=== PATIENT | male | born 1950 | race Caucasian/White ===

== ENCOUNTER → 2018-07-21 15:56 | Outpatient (CLI) | payer OTHER, SELFPAY ==
--- NOTE | 2018-07-21 | DI.RAD.S_ITS ---
PROCEDURE: XR CHEST 2V INDICATIONS: Chronic obstructive pulmonary disease, unspecified TECHNIQUE: 2 views of the chest were acquired. COMPARISON: [facility], , CHEST 2 VIEW, 01/25/2009, 17:00. FINDINGS: Surgical changes and devices: None. Lungs and pleura: Lungs are clear. No pleural effusions or pneumothorax. Mediastinum: Mediastinal contours are normal. Heart size is normal. Bones and chest wall: No suspicious bony abnormalities. Soft tissues appear unremarkable. IMPRESSION: Stable chest. No acute cardiopulmonary process is evident. Dictated by: Tobi Byrd M.D. on 07/21/2018 at 16:00 Approved by: Tobi Byrd M.D. on 07/21/2018 at 16:00
== END ==
PROVIDERS: PCP Internal Medicine; Visit Provider Internal Medicine
DX: J44.9 Chronic obstructive pulmonary disease, unspecified (principal)
CPT/HCPCS: 71046

== ENCOUNTER 2018-09-20 13:24 | Day surgery (SDC) | payer OTHER, SELFPAY ==
[2018-09-06 11:52] VITALS: BMI 40.1
--- NOTE | 2018-09-20 | PATH_ITS ---
[facility] Accession Number: [id number] . 01 Material submitted: . PART A: back - UPPER BACK CYST PART B: back - LOWER BACK CYST . 02 Diagnosis: A. Skin, Upper Back Cyst, Biopsy: Epidermoid inclusion cyst. . B. Skin, Lower Back Cyst, Biopsy: Epidermoid inclusion cyst. [facility]2018 . 02 Electronically signed: . Ivana Rayo MD, Pathologist NPI- [id number] . 01 Gross description: . A. Received in formalin, labeled with the patient's name and upper back cyst, is a 5.5 x 3.3 cm unoriented tim-white skin ellipse with underlying tim-brown subcutaneous tissue measuring 5.7 x 4.4 x 3.5 cm. Sectioning reveals an encapsulated 3.6 cm in diameter cystic cavity containing brown friable material. Voltage Tester sections are submitted in two cassettes. B. Received in formalin, labeled with the patient's name and lower back cyst, is a 3.4 x 1.9 cm unoriented tim-white skin ellipse excised to a depth of 1.8 cm. No abnormalities are identified on the skin surface. Sectioning reveals a 1.1 cm in diameter cystic cavity containing tim-white, friable material. Voltage Tester sections are submitted in two cassettes. (MARQUTIA:[id number]) /MRV . 02 Pathologist provided ICD-10: L72.3 . 02 CPT . 107308, 395180 Performed at: 01 [facility] [address] [place] [address] [id number] MD Damon Christensen MD Phone: [phone] Performed at: 02 [facility] [place] [address] [place] [address] [id number] MD Ivana Rayo MD Phone: [phone]
[2018-09-20] MEDS: LACTATED RINGERS 1,000 ML 100 ML IV (14:04)
[2018-09-20 14:05] VITALS: BP 151/91; PULSE 88; RESP 17; TEMP 37.2; O2SAT 94; BMI 40.0
--- NOTE | 2018-09-20 15:13 | PM.PREOP ---
Pre-operative Note Interval Note History & Physical reviewed/Exam performed by Physician: Yes Changes to H&P: No H&P completed within 30 days and has changed as indicated here:: See note from 09/01
[2018-09-20] MEDS: CEFAZOLIN 2 GM/100 ML FROZ.PIGGY IV (15:30)
--- NOTE | 2018-09-20 15:53 | SUR.OPER ---
Prone on padded OR bed, head in foam head support, gel chest rolls, gel pad under knees, pillow under lower legs, toes free of pressure, arms secured on padded arm boards at <90 degrees abduction. Safety belt at thigh.
[2018-09-20] MEDS: BUPIVACAINE 0.5% (PF) VIAL 30 ML INJ (16:01)
--- NOTE | 2018-09-20 16:38 | PM.OP.1 ---
Operative Date/Time/Diagnoses Date of procedure: 09/20/18 Time of procedure: 16:39 Pre-op diagnosis: To inflamed/infected sebaceous cyst of the back. One cyst measured 5 x 5 cm the other 4 by 3 cm Post-op diagnosis: same Procedure & Clinicians Procedure: Excision of the 2 inflamed cysts. One required a 9 cm long incision in the other a 7 cm incision. Both were closed by mobilizing deep fascia to bring the subcu together without tension. They were closed in 3 layers. See note below Same procedure as scheduled: Yes Indications: Symptomatic sebaceous cysts of the back. One had undergone an I and D already. Surgeon: Tushar Osborne Click Yes if Unassisted: Yes Anesthesia Type: General Operative Notes Findings: Large cyst excised intact Closure Type: primary Specimen(s): other (Cysts) Prosthetic devices, grafts, tissues, transplants, or devices: None Estimated Blood Loss (mL): 30 Blood products transfused: none Procedure in detail: The patient was placed prone on the operating room table after undergoing general endotracheal anesthesia. He was prepped and draped in the usual fashion. Local anesthetic was infiltrated around the upper back mass and an ellipse was made transversely to encompass the entire cyst. Was carried into the subcu which and deep underneath it. It was excised. I incised just below the visible fascia to bring the fat together without tension. Meticulous hemostasis was achieved. The fascial layer was reapproximated with 2 0 Vicryl interrupted sutures. The subcu and dermis were brought together with 3 0 Vicryl sutures. The skin was closed with interrupted 3 0 nylon sutures. Total length of the incision 1 closed was 9 cm. Attention was turned to the lesion on the lower back. This was excised and closed in the exact same manner. It was a smaller incision at sudden 7 m long. Dressings were applied. Patient was placed back on his bed supine and extubated and taken the recovery area in good condition. Complications: none Condition: stable Disposition: PACU
[2018-09-20 16:45] VITALS: BP 184/89; PULSE 84; RESP 20; TEMP 36.6; O2SAT 94
[2018-09-20 16:50] VITALS: BP 176/93; PULSE 82; RESP 12; TEMP 36.3; O2SAT 92
[2018-09-20 16:55] VITALS: BP 192/93; PULSE 80; RESP 12; TEMP 36.5; O2SAT 98
[2018-09-20 17:00] VITALS: BP 180/90; PULSE 80; RESP 16; TEMP 36.3; O2SAT 94
[2018-09-20 17:15] VITALS: BP 162/86; PULSE 74; RESP 16; TEMP 36.4; O2SAT 94
== END 2018-09-20 17:25 | disposition home or self-care (01) ==
PROVIDERS: PCP Internal Medicine; Visit Provider Specialist
PROC: (CPT 11406; principal; 2018-09-20 15:30)
DX: L72.3 Sebaceous cyst (principal); J44.9 Chronic obstructive pulmonary disease, unspecified
CPT/HCPCS: 11406 ×2; J0330; J0690; J1100; J2405; J2704; J3010

== ENCOUNTER → 2019-03-15 14:59 | Outpatient (ROUT) | payer MEDICARE, SELFPAY ==
[2019-03-15 15:15] LABS: Add Manual Diff / Slide Review NO; Basophils Absolute Auto 0 /uL (0-100); Basophils Percent Auto 0.3 % (0-2); Eosinophils Absolute Auto 100 /uL (0-450); Eosinophils Percent Auto 1.6 % (2-4); Hematocrit 41.9 % (41-53); Hemoglobin 14.1 g/dL (13.5-17.5); Lymphocytes Absolute Auto 800 /uL (1100-4500); Lymphocytes Percent Auto 9.8 % (25-40); Mean Corpuscular HGB Conc 33.5 % (30-36); Mean Corpuscular Hemoglobin 31.4 PG (26-34); Mean Corpuscular Volume 93.7 fL (80-100); Monocytes Absolute Auto 600 /uL (0-900); Monocytes Percent Auto 7.6 % (3-14); Neutrophils Absolute Auto 6200 /uL (1500-7000); Neutrophils Percent Auto 80.7 % (50-75); Platelet Count 187 X10^3/uL (150-400); Red Blood Cell Count 4.47 X10^6/uL (4.5-5.9); Red Cell Distribution Width 13.5 % (11.6-14.8); White Blood Cell Count 7.7 X10^3/uL (4.5-11.0)
[2019-03-15 15:24] LABS: Alanine Aminotransferase 70 IU/L (<50); Albumin 4.1 g/dL (3.5-5.0); Albumin Globulin Ratio 1.4 (1.0-2.8); Alkaline Phosphatase 74 U/L (38-126); Aspartate Aminotransferase 50 IU/L (17-59); BUN Creatinine Ratio 11.3 (6-22); Bilirubin Total 0.5 mg/dL (0.2-1.3); Blood Urea Nitrogen 9 mg/dL (9-20); Calcium 9.2 mg/dL (8.4-10.2); Carbon Dioxide 31 mmol/L (22-32); Chloride 98 mmol/L (98-107); Cholesterol 209 mg/dL (140-199); Estimated Glomerular Filt Rate > 60.0 mL/min (>60); Globulin 2.9 g/dL (1.7-4.1); Glucose 106 mg/dL (80-110); HDL Cholesterol 51 mg/dL (40-60); HEMOLYSIS < 15 (0-50); LDL Cholesterol Calculated 116 mg/dL (<100); Potassium 4.3 mmol/L (3.4-5.1); Sodium 137 mmol/L (137-145); Triglycerides 212 mg/dL (35-150)
== END ==
PROVIDERS: PCP Internal Medicine; Visit Provider Physician Assistant
DX: I10 Essential (primary) hypertension (principal); E78.5 Hyperlipidemia, unspecified
CPT/HCPCS: 80053; 80061; 85025

== ENCOUNTER → 2019-04-13 12:56 | Outpatient (CLI) | payer MEDICARE, SELFPAY ==
[2019-04-13 13:32] LABS: Hematocrit 44.4 % (41-53); Mean Corpuscular HGB Conc 33.9 % (30-36); Mean Corpuscular Hemoglobin 30.9 PG (26-34); Mean Corpuscular Volume 91.4 fL (80-100); Platelet Count 219 X10^3/uL (150-400); Red Blood Cell Count 4.86 X10^6/uL (4.5-5.9); Red Cell Distribution Width 13.2 % (11.6-14.8); White Blood Cell Count 7.7 X10^3/uL (4.5-11.0)
[2019-04-13 14:48] LABS: Neutrophils Absolute Manual 6545 /uL (3000-5900); RBC Morphology Normal Morphology; Total Cells Counted 100
[2019-04-13 15:26] LABS: Alanine Aminotransferase 90 IU/L (<50); Albumin 4.5 g/dL (3.5-5.0); Albumin Globulin Ratio 1.5 (1.0-2.8); Alkaline Phosphatase 79 U/L (38-126); Aspartate Aminotransferase 47 IU/L (17-59); BUN Creatinine Ratio 15.6 (6-22); Bilirubin Total 0.5 mg/dL (0.2-1.3); Blood Urea Nitrogen 14 mg/dL (9-20); Calcium 9.5 mg/dL (8.4-10.2); Carbon Dioxide 32 mmol/L (22-32); Chloride 99 mmol/L (98-107); Estimated Glomerular Filt Rate > 60.0 mL/min (>60); Glucose 87 mg/dL (80-110); HEMOLYSIS < 15 (0-50); Potassium 4.7 mmol/L (3.4-5.1); Sodium 141 mmol/L (137-145); Total Protein 7.5 g/dL (6.3-8.2)
== END ==
PROVIDERS: PCP Physician Assistant; Referring Provider Physician Assistant; Visit Provider Physician Assistant
DX: I10 Essential (primary) hypertension (principal); E78.2 Mixed hyperlipidemia
CPT/HCPCS: 36415; 80053; 85025

== ENCOUNTER → 2019-04-22 14:26 | Outpatient (CLI) | payer MEDICARE, SELFPAY ==
--- NOTE | 2019-04-25 09:37 | ONC.MSW ---
Description: Initial Referral Navigation Reason for Referral: Lymphocytopenia Activity: Reviewed referral for acuity, medical status and immediate needs. Forwarded to scheduling for next available initial consult time.
--- NOTE | 2019-04-29 15:49 | PM.PFT.1 ---
Pulmonary Function Test Referral & Results Date Patient Seen: 04/22/19 Requesting provider: Kerline Davies Results: The spirometry demonstrates an FVC of 2.37 L which is 53% of predicted. The FEV1 was measured at 0.95 L which is 29% of predicted. The FEV1/FVC ratio was 40 which is 54% of predicted. Following the administration of bronchodilator there was a 23% improvement in FEV1 and a 79% improvement in FEF 25-75%. Lung volumes show an SVC of 2.41 L which is 52% of predicted. The diffusing capacity was measured at 20.98 which is 64% of predicted. No hemoglobin value was provided, so no correction for potential anemia could be made, if appropriate. The maximum voluntary ventilation was reduced Interpretation: This study demonstrates severe obstructive lung disease with an FEV1 of less than 1 L. There is evidence of significant benefit following bronchodilator based on improvement in FEV1 and FEF 25-75% There is moderate restrictive lung disease present as well based on reduction SVC There is also moderate reduction in diffusing capacity suggesting significant disease at the capillary alveolar level This is altogether consistent with a diagnosis of COPD. Clinical correlation suggested
== END ==
PROVIDERS: PCP Physician Assistant; Referring Provider Physician Assistant; Visit Provider Physician Assistant
DX: J44.9 Chronic obstructive pulmonary disease, unspecified (principal); Z87.891 Personal history of nicotine dependence
CPT/HCPCS: 94060; 94726; 94729

== ENCOUNTER → 2019-08-12 14:56 | Outpatient (CLI) | payer MEDICARE, SELFPAY ==
--- NOTE | 2019-08-12 14:59 | DI.RAD.S_ITS ---
PROCEDURE: XR KNEE LT 1TO2V INDICATIONS: Left ankle pain, pain in both knees TECHNIQUE: 2 views of the knee were acquired. COMPARISON: None. FINDINGS: Bones: No fractures or dislocations. No suspicious bony lesions. Soft tissues: Small suprapatellar joint effusion. No suspicious soft tissue calcifications. IMPRESSION: Left knee without acute fracture or dislocation. Small suprapatellar joint effusion. If there are persistent symptoms or clinical suspicion for pathology, then repeat radiographs or advanced imaging (CT, MRI or bone scan) should be considered for further evaluation. Dictated by: Raphael Solares M.D. on 08/12/2019 at 15:52 Approved by: Raphael Solares M.D. on 08/12/2019 at 15:53
--- NOTE | 2019-08-12 14:59 | DI.RAD.S_ITS ---
PROCEDURE: XR ANKLE LT MIN 3V INDICATIONS: Left ankle pain, pain in both knees TECHNIQUE: 3-views of the ankle were acquired. COMPARISON: None. FINDINGS: Bones: No acute fractures or dislocations. Ankle mortise is normally aligned. No suspicious bony lesions. Soft tissues: There is soft tissue swelling of the left lower leg and ankle. No tibiotalar joint effusion. Achilles tendon appears normal. IMPRESSION: Soft tissue swelling of the left lower leg and ankle without underlying fracture or dislocation. If there are persistent symptoms or clinical suspicion for pathology, then repeat radiographs or advanced imaging (CT, MRI or bone scan) should be considered for further evaluation. Dictated by: Raphael Solares M.D. on 08/12/2019 at 15:50 Approved by: Raphael Solares M.D. on 08/12/2019 at 15:52
--- NOTE | 2019-08-12 14:59 | DI.RAD.S_ITS ---
PROCEDURE: XR KNEE RT 1TO2V INDICATIONS: Left ankle pain, pain in both knees TECHNIQUE: 2 views of the knee were acquired. COMPARISON: [facility], CR, XR KNEE LT 1TO2V, 08/12/2019, 14:11. FINDINGS: Bones: No fractures or dislocations. Tricompartmental degenerative changes. No suspicious bony lesions. Soft tissues: Small suprapatellar joint effusion. Chronic appearing soft tissue calcifications projecting adjacent to the medial tibial plateau. No suspicious soft tissue calcifications. IMPRESSION: Right knee without acute fracture or dislocation. Small suprapatellar joint effusion. If there are persistent symptoms or clinical suspicion for pathology, then repeat radiographs or advanced imaging (CT, MRI or bone scan) should be considered for further evaluation. Dictated by: Raphael Solares M.D. on 08/12/2019 at 16:00 Approved by: Raphael Solares M.D. on 08/12/2019 at 16:02
== END ==
PROVIDERS: PCP Physician Assistant; Referring Provider Physician Assistant; Visit Provider Physician Assistant
DX: M25.572 Pain in left ankle and joints of left foot (principal); M25.562 Pain in left knee; M25.561 Pain in right knee; M79.89 Other specified soft tissue disorders; M25.462 Effusion, left knee; M25.461 Effusion, right knee
CPT/HCPCS: 73560; 73610

== ENCOUNTER → 2019-08-24 06:59 | Outpatient (CLI) | payer MEDICARE, SELFPAY ==
--- NOTE | 2019-08-24 | DI.MRI.S_ITS ---
PROCEDURE: MR KNEE LT WO CON INDICATIONS: Pain in left knee TECHNIQUE: Noncontrast sagittal PD fast spin echo and T2 fast spin echo with fat saturation, sagittal 3-D FLASH with fat saturation; coronal T1 spin echo and PD fast spin echo with fat saturation, and axial PD fast spin echo with fat saturation through the knee. COMPARISON: [facility], CR, XR KNEE LT 1TO2V, 08/12/2019, 14:11. FINDINGS: Image quality: Diagnostic. Bones and joint: There is no acute fracture or dislocation. However, there is moderate bone marrow edema evident along the medial tibial plateau without an associated fracture line appreciated. No suspicious osseous lesions are evident. There is a moderate-sized knee joint effusion with a probable associated Krishnan's cyst. Heterogeneity and mild irregularity of the hyaline articular cartilage within the medial tibiofemoral compartment is present. There may be areas of cartilaginous fissuring. The hyaline articular cartilage within the lateral and patellofemoral compartments appears to be within normal limits. Mild degenerative changes of the proximal tibiofibular joint are noted with associated degenerative cystic change within it the lateral tibial plateau. Cruciate ligaments: The anterior and posterior cruciate ligaments are intact. Mild thickening of the anterior cruciate ligament probably is related to scarring from previous partial thickness injury. Menisci: Posterior root avulsion of the medial meniscus is present with mild extrusion of the body of the meniscus. Degenerative signal throughout the body and posterior horn is present. An additional horizontal tear is seen along the periphery of the medial meniscus at the junction of the body and posterior horn without definite articular surface involvement. Amorphous globular signal is also evident within it the lateral meniscus without a discrete lateral meniscal tear appreciated. Medial structures: The medial collateral ligament is intact. Edema about the medial collateral ligament is present. The semimembranosus tendon insertion is thickened and demonstrates mild increased signal without definitive tearing. There is an amorphous area of increased signal evident on the fluid sensitive sequences just medial to the distal semimembranosus tendon (image 23, series 6), which measures up to at least 1.6 cm and the largest dimension on the axial images. This may represent heterogeneous fluid within a semimembranosus bursa or heterogeneous fluid from the Krishnan's cyst. Medial patellar plica is noted. The imaged portions of the pes anserinus tendons are unremarkable. A moderate amount of fluid is contained within the pes anserinus bursa. Lateral structures: The popliteal tendon is intact. The lateral collateral ligament proper (fibular collateral ligament) and the proximal tibiofibular ligaments are intact. The distal aspect of the biceps femoris tendon and the iliotibial band are intact. Anterior structures: The quadriceps and patellar tendons are intact. There is mild edema in the infrapatellar fat pad. Fluid is seen within the prepatellar bursa. Other: Extensive subcutaneous edema about the knee is identified that is more pronounced anteriorly. IMPRESSION: 1. Complex medial meniscal tear with posterior root avulsion. 2. Medial tibial plateau bone contusion without a definitive fracture evident. 3. Possible medial collateral ligament sprain. 4. Moderate distal semimembranosus tendinopathy. Heterogeneous fluid adjacent to this tendon may represent heterogeneous fluid within the bursa or a Krishnan's cyst. Other etiologies cannot be completely excluded. Three-month followup MRI of the knee with intravenous contrast is recommended to exclude an underlying lesion. 5. Medial patellar plica. 6. Edema within the prepatellar soft tissues may be related to recent trauma. Please correlate clinically to exclude bursitis. 7. Moderate-sized knee joint effusion. 8. Mild degenerative changes of the knee are most pronounced within the medial tibiofemoral compartment. 9. Mucoid degeneration of the lateral meniscus without a discrete lateral meniscal tear evident. Dictated by: Tobi Byrd M.D. on 08/24/2019 at 10:13 Approved by: Tobi Byrd M.D. on 08/24/2019 at 10:20
== END ==
PROVIDERS: PCP Physician Assistant; Referring Provider Physician Assistant; Visit Provider Physician Assistant
DX: M25.562 Pain in left knee (principal); S83.232A Complex tear of medial meniscus, current injury, left knee, initial encounter; S80.02XA Contusion of left knee, initial encounter; M25.462 Effusion, left knee; M79.89 Other specified soft tissue disorders; M67.52 Plica syndrome, left knee; R60.0 Localized edema
CPT/HCPCS: 73721

== ENCOUNTER → 2020-01-25 13:36 | Outpatient (CLI) | payer MEDICARE, SELFPAY ==
--- NOTE | 2020-01-25 | DI.RAD.S_ITS ---
PROCEDURE: XR CHEST 2V INDICATIONS: COPD TECHNIQUE: 2 views of the chest were acquired. COMPARISON: [facility], CR, XR CHEST 2V, 07/21/2018, 16:03. FINDINGS: Surgical changes and devices: None. Lungs and pleura: Lungs are clear. No pleural effusions or pneumothorax. Mediastinum: Mediastinal contours are normal. Heart size is normal. Bones and chest wall: No suspicious bony abnormalities. Soft tissues appear unremarkable. IMPRESSION: No acute cardiopulmonary findings. Dictated by: Teagan Padilla M.D. on 01/25/2020 at 15:56 Approved by: Teagan Padilla M.D. on 01/25/2020 at 15:56
== END ==
PROVIDERS: PCP Physician Assistant; Referring Provider Physician Assistant; Visit Provider Physician Assistant
DX: J44.9 Chronic obstructive pulmonary disease, unspecified (principal)
CPT/HCPCS: 71046

== ENCOUNTER → 2020-01-31 13:40 | Oncology outpatient (ONC) | payer MEDICARE, SELFPAY ==
--- NOTE | 2019-05-10 10:33 | P.CONONC_ITS ---
History of Present Illness - Data of Consult Patient: new to practice Consult date: 05/10/19 Requesting Physician: Kerline Davies PA-C Primary Care Provider: Kerline Davies PA-C - Consult Narrative Reason for consult: Lymphocytopenia Narrative: Hamlet Krishna is a 69 year old male with medical comorbidities most notable severe COPD as well as hypertension. Patient was referred by Kerline Davies for evaluation of incidental finding of lymphopenia. On 03/15/2019, patient was evaluated for annual wellness visit. The lab on the day showed WBC 7.7 hemoglobin 14.1, hematocrit 41.9 platelets 187 with absolute lymphocyte count 800. And about a month later on March the 08/06/2019, patient underwent a repeat lab tests which showed WBC 7.7, hemoglobin 15.0, hematocrit 44.4, platelets 219, atypical lymphocytes 1%. Clinically patient reports symptoms of COPD and obesity and sleep apnea. He denies any frequent infection. Denies any fever or chills. He denies abdominal pain. No bleeding. CC: Savanna Hernandez MD Home Medications and Allergies Home Medications Medication Instructions Recorded Confirmed Type beclomethasone dipropionate 40 2 puff INHALATION BID 09/01/18 10/05/18 History mcg/actuation HFA breath activated aerosol carlos a 63 mg-alpha tab PO tab 09/01/18 10/05/18 History wwuzmanzv-plqktyic-njwxt acid-dha 17 mg chew tablet cholecalciferol (vitamin D3) 25 1,000 unit PO DAILY 09/01/18 10/05/18 History mcg (1,000 unit) capsule focus factor PO 09/01/18 10/05/18 History glucosam 750 mg-chondroi 100 tab PO tab 09/01/18 10/05/18 History mg-hyalur 1.65 mg-CF borate 108 mg tablet ipratropium 20 mcg-albuterol 100 1 puff INHALATION Q6H 09/01/18 10/05/18 History mcg/actuation mist for inhalation multivitamin 1 cap PO DAILY 09/01/18 10/05/18 History Blood Boost 05/10/19 History Md Liver Repair 05/10/19 History felodipine 5 mg PO DAILY 05/10/19 05/10/19 History Allergies Allergy/AdvReac Type Severity Reaction Status Date / Time No Known Drug Allergies Allergy Unverified 10/05/18 13:45 Medical History - Medical, Surgical, Family History Medical History: Medical History (Last Updated 05/10/19 @ 10:52 by Savanna Hernandez MD) COPD (chronic obstructive pulmonary disease) Hypertension STEFFEN (obstructive sleep apnea) Onset Date: ~2013 Surgical History: Surgical History (Last Reviewed 04/13/19 @ 16:31 by Willy Maciel MD) Hx of hemorrhoidectomy Hx of hernia repair Family History: Family History (Last Updated 05/10/19 @ 10:54 by Savanna Hernandez MD) Unknown Diabetes mellitus Hypertension Sister No problems noted. 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 He stopped drinking 03/03/2019.) Review of Systems All systems PM: reviewed and no additional remarkable complaints except as stated Exam Vital signs: 05/10/19 10:58 Last Vital Signs Temp 98.3 F 05/10/19 10:45 Pulse 72 05/10/19 10:45 Resp 16 05/10/19 10:45 BP 158/102 H 05/10/19 10:45 Pulse Ox 93 05/10/19 10:45 Narrative: ECOG 1 Gen: WDWN, NAD, morbid obese, pleasant and cooperative. Here by himself HEENT: NCAT, EOMI, PERRLA, anicteric sclera. Neck: Supple, No palpable thyromegaly or lymphadenopathy. Respiratory: Decreased breathing sound both side heard. With scattered wheezes especially on the left side. No crackles. Cardiovascular: RRR, S1 and S2 normal, no M/G/R. Abdomen: Soft, protuberant, difficult to evaluate organomegaly. Extremities: 1+ pitting edema bilaterally. Lymphatic: no palpable lymph nodes in the neck, axillae, or groins. Neurological: AOx3, CN II-XII grossly intact. No focal motor or sensory deficit. Psychiatric: Normal affect, appropriate mood, no depression, no anxiety. Results - Labs Laboratory Last Values WBC 7.9 X10^3/uL (4.5-11.0) 05/10/19 11:31 RBC 4.85 X10^6/uL (4.5-5.9) 05/10/19 11:31 Hgb 15.0 g/dL (13.5-17.5) 05/10/19 11:31 Hct 44.4 % (41-53) 05/10/19 11:31 MCV 91.6 fL (80-100) 05/10/19 11:31 MCH 30.8 PG (26-34) 05/10/19 11:31 MCHC 33.7 % (30-36) 05/10/19 11:31 RDW 13.3 % (11.6-14.8) 05/10/19 11:31 Plt Count 185 X10^3/uL (150-400) 05/10/19 11:31 Neut % (Auto) 80.5 % (50-75) H 05/10/19 11:31 Lymph % (Auto) 11.2 % (25-40) L 05/10/19 11:31 [place] % (Auto) 6.4 % (3-14) 05/10/19 11:31 Eos % (Auto) 1.6 % (2-4) L 05/10/19 11:31 Baso % (Auto) 0.3 % (0-2) 05/10/19 11:31 Neut # (Auto) 6300 /uL (4973-7760) 05/10/19 11:31 Lymph # (Auto) 900 /uL (9327-1230) L 05/10/19 11:31 [place] # (Auto) 500 /uL (0-900) 05/10/19 11:31 Eos # (Auto) 100 /uL (0-450) 05/10/19 11:31 Baso # (Auto) 0 /uL (0-100) 05/10/19 11:31 Sodium 140 mmol/L (137-145) 05/10/19 11:31 Potassium 4.6 mmol/L (3.4-5.1) 05/10/19 11:31 Chloride 103 mmol/L (98-107) 05/10/19 11:31 Carbon Dioxide 29 mmol/L (22-32) 05/10/19 11:31 BUN 15 mg/dL (9-20) 05/10/19 11:31 Creatinine 0.76 mg/dL (0.66-1.25) 05/10/19 11:31 Estimated GFR > 60.0 mL/min (>60) 05/10/19 11:31 BUN/Creatinine Ratio 19.7 (6-22) 05/10/19 11:31 Glucose 105 mg/dL (80-110) 05/10/19 11:31 Calcium 9.5 mg/dL (8.4-10.2) 05/10/19 11:31 Total Bilirubin 0.4 mg/dL (0.2-1.3) 05/10/19 11:31 AST 37 IU/L (17-59) 05/10/19 11:31 ALT 87 IU/L (<50) H 05/10/19 11:31 Alkaline Phosphatase 77 U/L (38-126) 05/10/19 11:31 Lactate Dehydrogenase 452 U/L (313-618) 05/10/19 11:31 Total Protein 7.6 g/dL (6.3-8.2) 05/10/19 11:31 Albumin 4.5 g/dL (3.5-5.0) 05/10/19 11:31 Globulin 3.1 g/dL (1.7-4.1) 05/10/19 11:31 Albumin/Globulin Ratio 1.5 (1.0-2.8) 05/10/19 11:31 - Imaging Additional studies: Procedures CLOSED ENDOSCOPIC BIOPSY OF LARGE INTESTINE (08/28/09) Colonoscopy (10/24/14) ENDOSCOPIC BIOPSY OF RECTUM (08/28/09) Assessment and Plan (1) Lymphopenia Overview: 69-year-old gentleman, morbid obese, with history of COPD, hypertension and obstructive sleep apnea. He was referred for evaluation of isolated lymphopenia first noted on 03/15/2019 during annual wellness visit. Repeat labs confirmed the lymphopenia and in addition atypical lymphocyte was noted. Assessment: I explained to the patient that the lymphopenia is a common finding. As long as patient does not have any associated infectious disease, usually we tend to observe closely. However there are atypical cells reported. I would recommend that we repeat the labs first and then will decide about the next step. Patient voiced understanding. Plan: CBC, CMP, LDH, SPEP RTC in one week
[2019-05-10 10:45] VITALS: BP 158/102; PULSE 72; RESP 16; TEMP 36.8; O2SAT 93
[2019-05-10 11:43] LABS: Add Manual Diff / Slide Review NO; Basophils Absolute Auto 0 /uL (0-100); Basophils Percent Auto 0.3 % (0-2); Eosinophils Absolute Auto 100 /uL (0-450); Eosinophils Percent Auto 1.6 % (2-4); Hematocrit 44.4 % (41-53); Lymphocytes Absolute Auto 900 /uL (1100-4500); Lymphocytes Percent Auto 11.2 % (25-40); Mean Corpuscular HGB Conc 33.7 % (30-36); Mean Corpuscular Hemoglobin 30.8 PG (26-34); Mean Corpuscular Volume 91.6 fL (80-100); Monocytes Absolute Auto 500 /uL (0-900); Monocytes Percent Auto 6.4 % (3-14); Neutrophils Absolute Auto 6300 /uL (1500-7000); Neutrophils Percent Auto 80.5 % (50-75); Platelet Count 185 X10^3/uL (150-400); Red Blood Cell Count 4.85 X10^6/uL (4.5-5.9); Red Cell Distribution Width 13.3 % (11.6-14.8); White Blood Cell Count 7.9 X10^3/uL (4.5-11.0)
[2019-05-10 11:56] LABS: Alanine Aminotransferase 87 IU/L (<50); Albumin 4.5 g/dL (3.5-5.0); Albumin Globulin Ratio 1.5 (1.0-2.8); Alkaline Phosphatase 77 U/L (38-126); Aspartate Aminotransferase 37 IU/L (17-59); BUN Creatinine Ratio 19.7 (6-22); Bilirubin Total 0.4 mg/dL (0.2-1.3); Blood Urea Nitrogen 15 mg/dL (9-20); Calcium 9.5 mg/dL (8.4-10.2); Carbon Dioxide 29 mmol/L (22-32); Chloride 103 mmol/L (98-107); Estimated Glomerular Filt Rate > 60.0 mL/min (>60); Globulin 3.1 g/dL (1.7-4.1); Glucose 105 mg/dL (80-110); HEMOLYSIS < 15 (0-50); Lactate Dehydrogenase 452 U/L (313-618); Potassium 4.6 mmol/L (3.4-5.1); Sodium 140 mmol/L (137-145); Total Protein 7.6 g/dL (6.3-8.2)
[2019-05-12 14:36] LABS: Albumin 3.8 g/dL (2.9-4.4); Alpha-1-Globulin 0.3 g/dL (0.0-0.4); Alpha-2-Globulin 0.8 g/dL (0.4-1.0); Globulin Total 3.2 g/dL (2.2-3.9)
--- NOTE | 2019-05-17 14:21 | PC.NURSE ---
PATIENT CANCELLED APPT TODAY DUE TO HIS MOTHER'S ILLNESS HE CARES FOR HER. HE WOULD LIKE TO KNOW IF ALL WAS OK WITH THE LAB RESULTS.
--- NOTE | 2019-05-18 12:15 | PC.NURSE ---
Addendum entered by Ashley Whittaker R.N. 05/18/19 12:38: Per Dr. Hernandez labs are stable. Okay to see in 3 months. CBC, CMP, LDH. Pt aware, labs and f/u ordered, schedulers aware. Original Note: Pt called informing this web content writer that his mother suffered a stroke a couple days ago. PT is currently the only caregiver for his 95 year old mother and he is unable to follow up with Dr. Hernandez at this time. Pt voiced concern r/t COVID 19 and having a earth science technical officer come in and sit with his mother so her could come to an appointment. Pt requesting Dr. Hernandez review his recent labs and then notify pt of next steps and recommendation. Will place note with pt's lab results in Dr. Hernandez's box. Pt aware and agreeable to plan.
--- NOTE | 2019-05-19 09:01 | ONC.SCHED ---
Left msg. for patient to schedule labs and 3 month f/u
[2019-08-05 15:50] LABS: Add Manual Diff / Slide Review NO; Basophils Absolute Auto 0 /uL (0-100); Basophils Percent Auto 0.2 % (0-2); Eosinophils Absolute Auto 100 /uL (0-450); Eosinophils Percent Auto 1.8 % (2-4); Hematocrit 41.4 % (41-53); Hemoglobin 14.4 g/dL (13.5-17.5); Lymphocytes Absolute Auto 1100 /uL (1100-4500); Mean Corpuscular HGB Conc 34.8 % (30-36); Mean Corpuscular Hemoglobin 31.3 PG (26-34); Monocytes Absolute Auto 600 /uL (0-900); Monocytes Percent Auto 7.3 % (3-14); Neutrophils Absolute Auto 6400 /uL (1500-7000); Neutrophils Percent Auto 77.7 % (50-75); Platelet Count 180 X10^3/uL (150-400); Red Cell Distribution Width 13.7 % (11.6-14.8); White Blood Cell Count 8.3 X10^3/uL (4.5-11.0)
[2019-08-05 16:02] LABS: Alanine Aminotransferase 67 IU/L (<50); Albumin 4.5 g/dL (3.5-5.0); Albumin Globulin Ratio 1.6 (1.0-2.8); Alkaline Phosphatase 68 U/L (38-126); Aspartate Aminotransferase 42 IU/L (17-59); BUN Creatinine Ratio 13.5 (6-22); Bilirubin Total 0.8 mg/dL (0.2-1.3); Blood Urea Nitrogen 12 mg/dL (9-20); Calcium 9.5 mg/dL (8.4-10.2); Carbon Dioxide 30 mmol/L (22-32); Chloride 101 mmol/L (98-107); Estimated Glomerular Filt Rate > 60.0 mL/min (>60); Globulin 2.8 g/dL (1.7-4.1); Glucose 92 mg/dL (80-110); HEMOLYSIS < 15 (0-50); Lactate Dehydrogenase 550 U/L (313-618); Potassium 4.2 mmol/L (3.4-5.1); Sodium 138 mmol/L (137-145); Total Protein 7.3 g/dL (6.3-8.2)
[2019-08-09 15:50] VITALS: BP 156/100; PULSE 93; RESP 18; TEMP 37.3; O2SAT 94
--- NOTE | 2019-08-09 17:40 | ONC.PN ---
PN -Subjective Interval history: Mr. Krishna presents today for follow-up of lymphopenia. Review of his old records shows an absolute lymphocyte count of 1100 in September of 2016. In February of 2019 his absolute lymphocyte count was 800. Repeat absolute lymphocyte count in April of 2019 was 900. He was seen in consultation by Dr. Hernandez. He was noted to have an absolute neutrophil count of 6300 with normal hemoglobin, hematocrit, red cell indices. Metabolic panel showing SGPT 87 otherwise normal. Serum protein electrophoresis and LDH were normal. He comes today for a follow-up visit. He denies problems with any lumps or bumps, bleeding from anywhere, malaise, fever, chills, night sweats, change in his breathing, anorexia, unintended weight loss, trouble swallowing or mouth sores. All other systems are negative. Past medical history 1. High blood pressure 2. History of chronic bronchitis and COPD 3. He denies diabetes, rheumatic fever, tuberculosis, heart attacks, strokes, stomach ulcers, or any kind of cancer 4. Previous surgeries include a removal of a sebaceous cyst on his back, and hemorrhoidectomy 5. He is unaware of any family history of blood disorders 6. He is single. He was recently caring for his mother who about a year ago. He does contract work and runs an excavator. He is not a current smoker and has an occasional drinker. - Patient Self-Reported Symptoms SR respiratory issues: Shortness of breath SR Cardiovascular issues: Extreme swelling SR Skin issues: Nail changes SR Musculoskeletal issues: Difficulty walking Home Medications and Allergies Home Medications Medication Instructions Recorded Confirmed Type beclomethasone dipropionate 40 2 puff INHALATION BID 09/01/18 10/05/18 History mcg/actuation HFA breath activated aerosol carlos a 63 mg-alpha tab PO tab 09/01/18 10/05/18 History uphhwpqls-rraeeoax-pznos acid-dha 17 mg chew tablet cholecalciferol (vitamin D3) 25 1,000 unit PO DAILY 09/01/18 10/05/18 History mcg (1,000 unit) capsule focus factor PO 09/01/18 10/05/18 History glucosam 750 mg-chondroi 100 tab PO tab 09/01/18 10/05/18 History mg-hyalur 1.65 mg-CF borate 108 mg tablet ipratropium 20 mcg-albuterol 100 1 puff INHALATION Q6H 09/01/18 10/05/18 History mcg/actuation mist for inhalation multivitamin 1 cap PO DAILY 09/01/18 10/05/18 History Blood Boost 05/10/19 History Md Liver Repair 05/10/19 History felodipine 5 mg PO DAILY 05/10/19 05/10/19 History Gsh Cell Defense 08/09/19 History Wbwd-C-Pfmkj 08/09/19 History Physio Primo 08/09/19 History Release 08/09/19 History Uricel 08/09/19 History fluticasone furoate [Arnuity 1 inh INHALATION DAILY 08/09/19 08/09/19 History Ellipta] reema extract cap PO 08/09/19 History vit C-s.tbhykd-tzraru-hqgsr sd cap PO 08/09/19 History [Tart Stout] Allergies Allergy/AdvReac Type Severity Reaction Status Date / Time No Known Drug Allergies Allergy Unverified 10/05/18 13:45 Exam Vital signs: Vital Signs Temp Pulse Resp BP Pulse Ox 08/09/19 15:50 99.1 F 93 H 18 156/100 H 94 Intake and Output 08/09/19 08/09/19 08/09/19 07:59 15:59 23:59 Other: Weight 133.4 kg Patient Weight 08/09/19 23:59 Weight 133.4 kg Narrative: He was in no acute distress. There was no lymphadenopathy in the cervical, supraclavicular, axillary, inguinal or femoral regions. The lungs were clear with distant breath sounds with slightly prolonged expiratory phase with no rales, wheezes or findings to suggest a pleural effusion on exam. Heart showed a regular rate and rhythm without murmur, gallop or rub. Abdomen was soft and nontender without organomegaly or masses. Neither the spleen or the liver were enlarged by percussion. Results - Labs Laboratory Last Values WBC 8.3 X10^3/uL (4.5-11.0) 08/05/19 15:41 RBC 4.60 X10^6/uL (4.5-5.9) 08/05/19 15:41 Hgb 14.4 g/dL (13.5-17.5) 08/05/19 15:41 Hct 41.4 % (41-53) 08/05/19 15:41 MCV 90.0 fL (80-100) 08/05/19 15:41 MCH 31.3 PG (26-34) 08/05/19 15:41 MCHC 34.8 % (30-36) 08/05/19 15:41 RDW 13.7 % (11.6-14.8) 08/05/19 15:41 Plt Count 180 X10^3/uL (150-400) 08/05/19 15:41 Neut % (Auto) 77.7 % (50-75) H 08/05/19 15:41 Lymph % (Auto) 13.0 % (25-40) L 08/05/19 15:41 [place] % (Auto) 7.3 % (3-14) 08/05/19 15:41 Eos % (Auto) 1.8 % (2-4) L 08/05/19 15:41 Baso % (Auto) 0.2 % (0-2) 08/05/19 15:41 Neut # (Auto) 6400 /uL (3293-4190) 08/05/19 15:41 Lymph # (Auto) 1100 /uL (6715-0011) 08/05/19 15:41 [place] # (Auto) 600 /uL (0-900) 08/05/19 15:41 Eos # (Auto) 100 /uL (0-450) 08/05/19 15:41 Baso # (Auto) 0 /uL (0-100) 08/05/19 15:41 Sodium 138 mmol/L (137-145) 08/05/19 15:41 Potassium 4.2 mmol/L (3.4-5.1) 08/05/19 15:41 Chloride 101 mmol/L (98-107) 08/05/19 15:41 Carbon Dioxide 30 mmol/L (22-32) 08/05/19 15:41 BUN 12 mg/dL (9-20) 08/05/19 15:41 Creatinine 0.89 mg/dL (0.66-1.25) 08/05/19 15:41 Estimated GFR > 60.0 mL/min (>60) 08/05/19 15:41 BUN/Creatinine Ratio 13.5 (6-22) 08/05/19 15:41 Glucose 92 mg/dL (80-110) 08/05/19 15:41 Calcium 9.5 mg/dL (8.4-10.2) 08/05/19 15:41 Total Bilirubin 0.8 mg/dL (0.2-1.3) 08/05/19 15:41 AST 42 IU/L (17-59) 08/05/19 15:41 ALT 67 IU/L (<50) H 08/05/19 15:41 Alkaline Phosphatase 68 U/L (38-126) 08/05/19 15:41 Lactate Dehydrogenase 550 U/L (313-618) 08/05/19 15:41 Total Protein 7.3 g/dL (6.3-8.2) 08/05/19 15:41 Albumin 4.5 g/dL (3.5-5.0) 08/05/19 15:41 Globulin 2.8 g/dL (1.7-4.1) 08/05/19 15:41 Albumin/Globulin Ratio 1.6 (1.0-2.8) 08/05/19 15:41 [place]ws[place]-4-Eaaekiuek 0.3 g/dL (0.0-0.4) 05/10/19 11:31 Froyr-5-Bquapgkpt 0.8 g/dL (0.4-1.0) 05/10/19 11:31 Beta Globulins 1.1 g/dL (0.7-1.3) 05/10/19 11:31 Gamma Globulins 1.0 g/dL (0.4-1.8) 05/10/19 11:31 Gamma Glob/Tot Protein 3.2 g/dL (2.2-3.9) 05/10/19 11:31 M-Jay Not observed g/dL (Not Observed) 05/10/19 11:31 Ref Lab Notation Comment (.) 05/10/19 11:31 - Imaging Additional studies: Procedures ANAL FISTULOTOMY (09/12/09) CLOSED ENDOSCOPIC BIOPSY OF LARGE INTESTINE (08/28/09) Colonoscopy (10/24/14) ENDOSCOPIC BIOPSY OF RECTUM (08/28/09) HEMORRHOIDECTOMY (09/12/09) Assessment and Plan (1) Lymphopenia Overview: The patient is clinically stable. His repeat labs from today show a normal lymphocyte number of 1100. His lymphocyte percentage is slightly low at 13% but he does not have an absolute lymphopenia. And elevation of his ALT remains the sole abnormality on his chemistry panel but is slightly improved from before. He does not have a clinical history to suggest recurrent infections, an underlying lymphoproliferative disorder or other malignancy, a collagen vascular disease and is not on any medications that would be potential culprits. He takes a topical steroid but I doubt that that would cause a lymphopenia. For now, given the fact that he is asymptomatic, I would suggest we continue to monitor him. His most recent absolute lymphocyte count was normal. Accordingly, we will have him back in about 6 months with repeat labs. Would be happy to see him back at any time if we could be of assistance in his care. He had multiple questions that were answered in detail. I personally spent 18 minutes in today's sjrw-uc-cyfp visit with greater than 50% of the time spent in counseling regarding the issues outlined above.
[2020-01-25 14:08] LABS: Hematocrit 44.1 % (41-53); Hemoglobin 14.6 g/dL (13.5-17.5); Mean Corpuscular HGB Conc 33.2 % (30-36); Mean Corpuscular Hemoglobin 30.5 PG (26-34); Mean Corpuscular Volume 92.1 fL (80-100); Platelet Count 190 X10^3/uL (150-400); Red Blood Cell Count 4.78 X10^6/uL (4.5-5.9); Red Cell Distribution Width 13.8 % (11.6-14.8); White Blood Cell Count 9.2 X10^3/uL (4.5-11.0)
[2020-01-25 14:30] LABS: Alanine Aminotransferase 72 IU/L (<50); Albumin 4.3 g/dL (3.5-5.0); Albumin Globulin Ratio 1.4 (1.0-2.8); Alkaline Phosphatase 81 U/L (38-126); Aspartate Aminotransferase 42 IU/L (17-59); BUN Creatinine Ratio 21.1 (6-22); Bilirubin Total 0.4 mg/dL (0.2-1.3); Blood Urea Nitrogen 15 mg/dL (9-20); Carbon Dioxide 31 mmol/L (22-32); Chloride 103 mmol/L (98-107); Estimated Glomerular Filt Rate > 60.0 mL/min (>60); Globulin 3.1 g/dL (1.7-4.1); Glucose 105 mg/dL (80-110); HEMOLYSIS < 15 (0-50); Potassium 4.5 mmol/L (3.4-5.1); Sodium 138 mmol/L (137-145); Total Protein 7.4 g/dL (6.3-8.2)
[2020-01-25 16:32] LABS: Neutrophils Absolute Manual 7544 /uL (3000-5900); RBC Morphology Normal Morphology; Total Cells Counted 100
[2020-01-27 13:36] LABS: Albumin 3.6 g/dL (2.9-4.4); Alpha-1-Globulin 0.2 g/dL (0.0-0.4); Alpha-2-Globulin 0.8 g/dL (0.4-1.0); Gamma Globulin 1.1 g/dL (0.4-1.8); Globulin Total 3.3 g/dL (2.2-3.9); Protein, Total 6.9 g/dL (6.0-8.5)
[2020-01-31 14:49] VITALS: BP 167/89; PULSE 87; RESP 16; TEMP 36.5; O2SAT 90
--- NOTE | 2020-01-31 15:00 | ONC.PN ---
PN -Subjective Interval history: Mr. Krishna presents today for follow-up of lymphopenia. Review of his old records shows an absolute lymphocyte count of 1100 in September of 2016. In February of 2019 his absolute lymphocyte count was 800. Repeat absolute lymphocyte count in April of 2019 was 900. He was seen in consultation by Dr. Hernandez. He was noted to have an absolute neutrophil count of 6300 with normal hemoglobin, hematocrit, red cell indices. Metabolic panel showing SGPT 87 otherwise normal. Serum protein electrophoresis and LDH were normal. He comes today for a follow-up visit. Since he was last in he has been feeling good. He has not had recurrent infections, night sweats, anorexia, unintended weight loss or any enlarged lymph nodes. He does not have infections of superficial cuts. He does note that he hit his right breast just above and lateral to the nipple and it has been sore in that area. He also notes a fullness in that area. This was all about a week ago. He does not think things have changed over the past week. He denies problems with any lumps or bumps, bleeding from anywhere, malaise, fever, chills, night sweats, change in his breathing, anorexia, unintended weight loss, trouble swallowing or mouth sores. All other systems are negative. Past medical history 1. High blood pressure 2. History of chronic bronchitis and COPD 3. He denies diabetes, rheumatic fever, tuberculosis, heart attacks, strokes, stomach ulcers, or any kind of cancer 4. Previous surgeries include a removal of a sebaceous cyst on his back, and hemorrhoidectomy 5. He is unaware of any family history of blood disorders 6. He is single. He was recently caring for his mother who about a year ago. He does contract work and runs an excavator. He is not a current smoker and has an occasional drinker. - Patient Self-Reported Symptoms SR respiratory issues: Shortness of breath SR Cardiovascular issues: Extreme swelling SR Skin issues: Skin color changes SR Musculoskeletal issues: Joint pain or swelling Home Medications and Allergies Home Medications Medication Instructions Recorded Confirmed Type beclomethasone dipropionate 40 2 puff INHALATION BID 09/01/18 10/05/18 History mcg/actuation HFA breath activated aerosol carlos a 63 mg-alpha tab PO tab 09/01/18 10/05/18 History dmwnmcsln-jbuwlkxb-jekzh acid-dha 17 mg chew tablet cholecalciferol (vitamin D3) 25 1,000 unit PO DAILY 09/01/18 10/05/18 History mcg (1,000 unit) capsule focus factor PO 09/01/18 10/05/18 History glucosam 750 mg-chondroi 100 tab PO tab 09/01/18 10/05/18 History mg-hyalur 1.65 mg-CF borate 108 mg tablet ipratropium 20 mcg-albuterol 100 1 puff INHALATION Q6H 09/01/18 10/05/18 History mcg/actuation mist for inhalation multivitamin 1 cap PO DAILY 09/01/18 10/05/18 History Blood Boost 05/10/19 History Md Liver Repair 05/10/19 History felodipine 5 mg PO DAILY 05/10/19 05/10/19 History Gsh Cell Defense 08/09/19 History Gdvl-N-Wjwsq 08/09/19 History Physio Primo 08/09/19 History Release 08/09/19 History Uricel 08/09/19 History fluticasone furoate [Arnuity 1 inh INHALATION DAILY 08/09/19 08/09/19 History Ellipta] reema extract cap PO 08/09/19 History vit C-s.bkwmjx-xfoklp-kfzeb sd cap PO 08/09/19 History [Tart Stout] Allergies Allergy/AdvReac Type Severity Reaction Status Date / Time No Known Drug Allergies Allergy Unverified 10/05/18 13:45 Exam Vital signs: Vital Signs Temp Pulse Resp BP Pulse Ox 01/31/20 14:49 97.7 F 87 16 167/89 H 90 L Intake and Output 01/30/20 01/31/20 01/31/20 23:59 07:59 15:59 Other: Weight 137.5 kg Patient Weight 01/31/20 23:59 Weight 137.5 kg Narrative: He was in no acute distress. There was no lymphadenopathy in the cervical, supraclavicular, axillary, inguinal or femoral regions. The lungs were clear with distant breath sounds with slightly prolonged expiratory phase with no rales, wheezes or findings to suggest a pleural effusion on exam. Heart showed a regular rate and rhythm without murmur, gallop or rub. Abdomen was soft and nontender without organomegaly or masses. Neither the spleen or the liver were enlarged by percussion. The left breast was normal. The right breast showed a subtle fullness at about 10:00 a.m. approximately 2 cm from the nipple. It did not feel like a firm discrete mass. Results - Labs Laboratory Last Values WBC 9.2 X10^3/uL (4.5-11.0) 01/25/20 13:57 RBC 4.78 X10^6/uL (4.5-5.9) 01/25/20 13:57 Hgb 14.6 g/dL (13.5-17.5) 01/25/20 13:57 Hct 44.1 % (41-53) 01/25/20 13:57 MCV 92.1 fL (80-100) 01/25/20 13:57 MCH 30.5 PG (26-34) 01/25/20 13:57 MCHC 33.2 % (30-36) 01/25/20 13:57 RDW 13.8 % (11.6-14.8) 01/25/20 13:57 Plt Count 190 X10^3/uL (150-400) 01/25/20 13:57 Neut % (Auto) 77.7 % (50-75) H 08/05/19 15:41 Lymph % (Auto) 13.0 % (25-40) L 08/05/19 15:41 [place] % (Auto) 7.3 % (3-14) 08/05/19 15:41 Eos % (Auto) 1.8 % (2-4) L 08/05/19 15:41 Baso % (Auto) 0.2 % (0-2) 08/05/19 15:41 Neut # (Auto) 6400 /uL (9020-8677) 08/05/19 15:41 Lymph # (Auto) 1100 /uL (5723-5148) 08/05/19 15:41 [place] # (Auto) 600 /uL (0-900) 08/05/19 15:41 Eos # (Auto) 100 /uL (0-450) 08/05/19 15:41 Baso # (Auto) 0 /uL (0-100) 08/05/19 15:41 Total Counted 100 01/25/20 13:57 Seg Neutrophils % 78.0 % (38-70) H 01/25/20 13:57 Band Neutrophils % 4.0 % (3-7) 01/25/20 13:57 Lymphocytes % (Manual) 11.0 % (25-45) L 01/25/20 13:57 Monocytes % (Manual) 6.0 % (2-11) 01/25/20 13:57 Eosinophils % (Manual) 1.0 % (2-4) L 01/25/20 13:57 Neutrophils # (Manual) 7544 /uL (3363-1796) H 01/25/20 13:57 RBC Morphology Normal morphology 01/25/20 13:57 Sodium 138 mmol/L (137-145) 01/25/20 13:57 Potassium 4.5 mmol/L (3.4-5.1) 01/25/20 13:57 Chloride 103 mmol/L (98-107) 01/25/20 13:57 Carbon Dioxide 31 mmol/L (22-32) 01/25/20 13:57 BUN 15 mg/dL (9-20) 01/25/20 13:57 Creatinine 0.71 mg/dL (0.66-1.25) 01/25/20 13:57 Estimated GFR > 60.0 mL/min (>60) 01/25/20 13:57 BUN/Creatinine Ratio 21.1 (6-22) 01/25/20 13:57 Glucose 105 mg/dL (80-110) 01/25/20 13:57 Calcium 9.0 mg/dL (8.4-10.2) 01/25/20 13:57 Total Bilirubin 0.4 mg/dL (0.2-1.3) 01/25/20 13:57 AST 42 IU/L (17-59) 01/25/20 13:57 ALT 72 IU/L (<50) H 01/25/20 13:57 Alkaline Phosphatase 81 U/L (38-126) 01/25/20 13:57 Lactate Dehydrogenase 550 U/L (313-618) 08/05/19 15:41 Total Protein 6.9 g/dL (6.0-8.5) 01/25/20 13:57 Total Protein 7.4 g/dL (6.3-8.2) 01/25/20 13:57 Albumin 3.6 g/dL (2.9-4.4) 01/25/20 13:57 Albumin 4.3 g/dL (3.5-5.0) 01/25/20 13:57 Globulin 3.1 g/dL (1.7-4.1) 01/25/20 13:57 Albumin/Globulin Ratio 1.1 (0.7-1.7) 01/25/20 13:57 Albumin/Globulin Ratio 1.4 (1.0-2.8) 01/25/20 13:57 Lakeh-3-Alriccnlf 0.2 g/dL (0.0-0.4) 01/25/20 13:57 Wxcqm-0-Jblkppfrc 0.8 g/dL (0.4-1.0) 01/25/20 13:57 Beta Globulins 1.1 g/dL (0.7-1.3) 01/25/20 13:57 Gamma Globulins 1.1 g/dL (0.4-1.8) 01/25/20 13:57 Gamma Glob/Tot Protein 3.3 g/dL (2.2-3.9) 01/25/20 13:57 M-Jay Not observed g/dL (Not Observed) 01/25/20 13:57 Ref Lab Notation Comment (.) 01/25/20 13:57 - Imaging Additional studies: Procedures ANAL FISTULOTOMY (09/12/09) CLOSED ENDOSCOPIC BIOPSY OF LARGE INTESTINE (08/28/09) Colonoscopy (10/24/14) ENDOSCOPIC BIOPSY OF RECTUM (08/28/09) HEMORRHOIDECTOMY (09/12/09) Assessment and Plan (1) Lymphopenia Overview: The patient is clinically stable. His repeat labs from today show a lymphocyte number of just over 1,000. He is asymptomatic with no evidence of recurrent infections. And elevation of his ALT remains the sole abnormality on his chemistry panel but is slightly improved from before. He does not have a clinical history to suggest recurrent infections, an underlying lymphoproliferative disorder or other malignancy, a collagen vascular disease and is not on any medications that would be potential culprits. He takes a topical steroid but I doubt that that would cause a lymphopenia. For now, given the fact that he is asymptomatic, I would suggest we continue to monitor him. Accordingly, we will have him back in about 6 months with repeat labs. Would be happy to see him back at any time if we could be of assistance in his care. He also has a new subtle fullness at about 10:00 a.m. in the right breast that he noticed after hitting his right chest wall with a piece of lumber. Will get an ultrasound of this area for clarification. Any abnormalities will be appropriately pursued. If it is clear will reassess when he returns in 6 months. Impression: 1. Lymphopenia, stable, without atypical forms 2. No evidence of recurrent infections are an underlying blood disorder 3. Subtle palpable fullness in the right breast as discussed above Recommendation: 1. Follow-up in 6 months with repeat lab work 2. Ultrasound of the right breast 3. Any abnormalities in the right breast will be appropriately pursued he will let us know if he has any changes in this area before his next visit.
--- NOTE | 2020-01-31 16:10 | ONC.SCHED ---
Left msg. for patient regarding scheduling [address] Van wants an US done within a week or so. I will try patient again if I don't hear back from him.
== END ==
PROVIDERS: Internal Medicine; PCP Physician Assistant; Referring Provider Physician Assistant; Visit Provider Internal Medicine Hematology & Oncology
DX: D72.810 Lymphocytopenia (principal); I10 Essential (primary) hypertension; J44.9 Chronic obstructive pulmonary disease, unspecified
CPT/HCPCS: 36415; 80053; 83615; 84155; 84165; 85025; 99204; 99213; 99214

== ENCOUNTER → 2020-02-29 14:04 | Outpatient (CLI) | payer MEDICARE, SELFPAY ==
--- NOTE | 2020-02-29 14:05 | DI.MG.S_ITS ---
MALE BILATERAL DIGITAL DIAGNOSTIC MAMMOGRAM 3D/2D: 02/29/2020 CLINICAL: Lymphocytopenia. Baseline exam. No prior exams were available for comparison. Male patient. There is an irregular global asymmetry in the right breast central to the nipple in the retroareolar region. There is an irregular global asymmetry in the left breast central to the nipple in the retroareolar region. No other significant masses or calcifications are seen in either breast. IMPRESSION: INCOMPLETE: NEEDS ADDITIONAL IMAGING EVALUATION Retroareolar gynecomastia in both breasts is benign. The palpable marker site is near the right gynecomastia. A targeted ultrasound of the palpable site is recommended and will immediately follow. Clinical follow-up is recommended. This exam was interpreted at Station ID: [id number]. NOTE: For mammograms, a report in lay terms will be sent to the patient. Approximately 15% of breast malignancies will not be visualized mammographically. In the management of a palpable breast mass, a negative mammogram must not discourage biopsy of a clinically suspicious lesion. Electronically Signed By: Tristen Mendez M.D. slc/:02/29/2020 15:56:40 ACR BI-RADS Category 0: Incomplete [id number]
--- NOTE | 2020-02-29 14:05 | DI.US.S_ITS ---
LIMITED ULTRASOUND OF RIGHT BREAST: 02/29/2020 CLINICAL: Palpable right breast lump. Comparison is made to exam dated: 02/29/2020 [facility]. Color flow and real-time ultrasound of the right breast retroareolar were performed. Blackwell scale images of the real-time examination were reviewed. There is a benign irregular area of fibroglandular tissue in the right breast central to the nipple in the retroareolar region. This correlates as palpated and with mammography findings. No mass. IMPRESSION: BENIGN There is no sonographic evidence of malignancy. No mass. The irregular area of fibroglandular tissue in the right breast is consistent with gynecomastia and is benign. Exam findings were conveyed to the patient. Clinical follow-up is recommended. This exam was interpreted at Station ID: [id number]. Electronically Signed By: Tristen Mendez M.D. slc/:02/29/2020 15:57:32 letter sent: Clinical Evaluation Ultrasound BI-RADS: 2 Benign
== END ==
PROVIDERS: PCP Physician Assistant; Referring Provider Internal Medicine; Visit Provider Internal Medicine
DX: N63.10 Unspecified lump in the right breast, unspecified quadrant (principal); D72.810 Lymphocytopenia; N64.4 Mastodynia
CPT/HCPCS: 76642; 77066; G0279

== ENCOUNTER → 2020-06-22 10:26 | Outpatient (CLI) | payer OTHER, SELFPAY ==
[2020-06-22 10:40] LABS: Hematocrit 43.7 % (41-53); Hemoglobin 14.8 g/dL (13.5-17.5); Mean Corpuscular HGB Conc 33.9 % (30-36); Mean Corpuscular Hemoglobin 31.1 PG (26-34); Mean Corpuscular Volume 91.7 fL (80-100); Platelet Count 165 X10^3/uL (150-400); Red Blood Cell Count 4.77 X10^6/uL (4.5-5.9); Red Cell Distribution Width 13.7 % (11.6-14.8); White Blood Cell Count 9.1 X10^3/uL (4.5-11.0)
[2020-06-22 11:01] LABS: Neutrophils Absolute Manual 7826 /uL (3000-5900); RBC Morphology Normal Morphology; Total Cells Counted 100
[2020-06-22 11:02] LABS: Alanine Aminotransferase 46 IU/L (<50); Albumin 4.2 g/dL (3.5-5.0); Albumin Globulin Ratio 1.4 (1.0-2.8); Alkaline Phosphatase 71 U/L (38-126); Aspartate Aminotransferase 28 IU/L (17-59); BUN Creatinine Ratio 15.3 (6-22); Bilirubin Total 0.5 mg/dL (0.2-1.3); Blood Urea Nitrogen 13 mg/dL (9-20); Calcium 9.2 mg/dL (8.4-10.2); Carbon Dioxide 33 mmol/L (22-32); Chloride 100 mmol/L (98-107); Estimated Glomerular Filt Rate > 60.0 mL/min (>60); Globulin 2.9 g/dL (1.7-4.1); Glucose 115 mg/dL (80-110); HEMOLYSIS < 15 (0-50); Potassium 4.1 mmol/L (3.4-5.1); Sodium 139 mmol/L (137-145); Total Protein 7.1 g/dL (6.3-8.2)
== END ==
PROVIDERS: Internal Medicine; PCP Physician Assistant; Referring Provider Physician Assistant; Visit Provider Physician Assistant
DX: D72.810 Lymphocytopenia (principal); N63.10 Unspecified lump in the right breast, unspecified quadrant
CPT/HCPCS: 36415; 80053; 85025

== ENCOUNTER → 2020-10-04 09:47 | Outpatient (CLI) | payer OTHER, SELFPAY ==
[2020-10-04 11:46] LABS: COVID19 -Nasal RAPID Negative (Negative)
== END ==
PROVIDERS: PCP Physician Assistant; Visit Provider Specialist
DX: Z20.822 Contact with and (suspected) exposure to COVID-19 (principal)
CPT/HCPCS: 87635; C9803

== ENCOUNTER 2020-10-05 09:00 | Day surgery (SDC) | payer OTHER, SELFPAY ==
[2020-10-05] VITALS (7 sets, daily range): BP systolic 135–171; BP diastolic 57–98; PULSE 72–80; RESP 16–22; TEMP 36.2–36.8; O2SAT 79–98
--- NOTE | 2020-10-05 | PATH_ITS ---
[facility] Accession Number: [id number] . 01 Material submitted: . body - POLYPS @10CM (2) . 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 Multiple separate fragments of tubulovillous adenoma and hyperplastic polyp. Please see comment. MRV 10/09/2020 1113 Local . 02 Comment: The largest biopsied fragment contains high-grade dysplasia. The inked biopsy edges show low-grade dysplasia approximating ink. High-grade dysplasia does not extend to biopsy edges. There is no evidence of invasive carcinoma. As part of routine quality assurance manager, Dr. Pelayo also reviewed this case and agrees with the interpretation. Dr. Rayo gave preliminary results to Nubia in Dr. Osborne's office on 10/09/2020. . 02 Electronically signed: . Ivana Rayo MD, Pathologist NPI- [id number] . 01 Gross description: . Received in formalin, labeled polyps at 10 cm, The specimen consists of one large polyp and multiple fragments of tim, soft tissue. The large piece of tissue measures 2.4 x 1.9 x 1.2 cm, and the multiple fragments of tim, soft tissue in aggregate measures 2.2 x 1.5 x 0.3 cm. The large fragment of tissue inked blue, serially sectioned, and entirely submitted in cassettes A1 and A2, each containing three pieces. Cassette A3 contains the aggregate. ([id number]) /FRR 10/06/2020 1626 Local . 02 Pathologist provided ICD-10: D12.6 . 02 CPT . 832440 Performed at: 01 [facility] [address] [place] [address], [place], [place] [id number] MD Damon Christensen MD Phone: [phone] Performed at: 02 [facility] [address] [place] [id number] MD Ivana Rayo MD Phone: [phone]
[2020-10-05] MEDS: LACTATED RINGERS 1,000 ML 42 ML IV (09:30)
--- NOTE | 2020-10-05 11:11 | P.HP_ITS ---
History of Present Illness History of Present Illness Chief complaint: SCREENING COLONOSCOPY Narrative: The patient is here for screening colonoscopy. His last exam was 5 years ago. He has had polyps removed in the past. Patient History Medical History COPD (chronic obstructive pulmonary disease) Hypertension STEFFEN (obstructive sleep apnea) (~2013) Surgical History Hx of hemorrhoidectomy Hx of hernia repair Family & Social History Family History Unknown Diabetes mellitus Hypertension Sister No problems noted. Social History: household members family Tobacco & Substance use: Tobacco type cigarettes Smoking Status Former smoker alcohol intake former alcohol intake frequency holiday/special occasion Substance Use Type does not use Meds Home Medications and Allergies Home Medications Medication Instructions Recorded Confirmed Type beclomethasone dipropionate 40 2 puff INHALATION BID 09/01/18 10/05/20 History mcg/actuation HFA breath activated aerosol (Qvar RediHaler) carlos a 63 mg-alpha tab PO tab 09/01/18 10/05/18 History lkixkwnvv-seqdefwj-yqrtl acid-dha 17 mg chew tablet (Adult [place] Plus DHA) cholecalciferol (vitamin D3) 25 1,000 unit PO DAILY 09/01/18 10/05/20 History mcg (1,000 unit) capsule focus factor PO 09/01/18 10/05/18 History glucosam 750 mg-chondroi 100 tab PO tab 09/01/18 10/05/18 History mg-hyalur 1.65 mg-CF borate 108 mg tablet ([facility] [employer]) ipratropium 20 mcg-albuterol 100 1 puff INHALATION Q6H 09/01/18 10/05/18 History mcg/actuation mist for inhalation (Combivent Respimat) multivitamin 1 cap PO DAILY 09/01/18 10/05/18 History Blood Boost 05/10/19 History Md Liver Repair 05/10/19 History felodipine 5 mg tablet,extended 5 mg PO DAILY 05/10/19 10/05/20 History release 24 hr Gsh Cell Defense 08/09/19 History Wckf-O-Norcj 08/09/19 History Physio Primo 08/09/19 History Release 08/09/19 History Uricel 08/09/19 History fluticasone furoate 100 1 inh INHALATION DAILY 08/09/19 10/05/20 History mcg/actuation blister powder for inhalation (Arnuity Ellipta) reema extract 500 mg capsule cap PO 08/09/19 History vit C 30 mg-s.stout 250 mg-celery cap PO 08/09/19 History seed 75 mg-grape seed extrt capsule (Tart Stout) ipratropium 20 mcg-albuterol 100 INHALATION 10/05/20 History mcg/actuation mist for inhalation (Combivent Respimat) Allergies Allergy/AdvReac Type Severity Reaction Status Date / Time No Known Drug Allergies Allergy Verified 10/05/20 09:17 Review of Systems Review of Systems Narrative: No chest pain heart disease he has COPD probably from industrial exposure per his history. He stop smoking in 1989. No seizures or blackouts. No anxiety or depression. He does not feel tight this morning. Exam Vital Signs (past 8 hours): - 10/05/20 09:35 Temperature 98 F Pulse Rate 76 Respiratory Rate 18 Blood Pressure 171/96 H Pulse Oximetry 92 Oxygen Delivery Method Room Air Narrative Exam Narrative: Pleasant cooperative patient no apparent distress. Lungs are clear to auscultation. No rales or rhonchi. Heart regular rate and rhythm no murmur gallop. Abdomen is soft nontender without mass. No obvious hernias. Patient is alert and oriented x3. Assessment & Plan Assessment & Plan narrative: The patient for a screening colonoscopy. I have discussed the procedure with them. Risks of bleeding, perforation which would necessitate major operation, failure to find remove all lesions, the potential tattoo were all discussed. All questions were answered. They wished to proceed.
--- NOTE | 2020-10-05 11:15 | PM.PREOP ---
Pre-operative Note COVID-19 COVID-19 status: Negative Result date/Date tested (Pos, Neg/Pending): 10/04/20 Interval Note History & Physical reviewed/Exam performed by Physician: Yes Changes to H&P: No ASA Class (for procedural sedation): III
--- NOTE | 2020-10-05 12:13 | P.OP.ENDO_ITS ---
Operative Date/Time/Diagnoses Date of procedure: 10/05/20 Time of procedure: 12:13 Pre-op diagnosis: History of polyps. Last exam 5 years ago. Post-op diagnosis: same (Large rectal polyp 10 cm from the anal verge.) Procedure & Clinicians Study performed: Colonoscopy with cold biopsy, hot snare polypectomy, injection of Kaylyn ink. Same procedure as scheduled: Yes Indications: Screening exam in a patient with a history of polyps Surgeon: Tushar Osborne Procedure Notes SCOAP/Timeout: Performed Procedure in detail: The patient was placed in the left lateral decubitus position and underwent IV sedation directed by the surgeon consisting of fentanyl and Versed. Digital exam was remarkable for a narrowed anal verge.. The scope was inserted and advanced through the rectum into the sigmoid, descending, transverse, and ascending colon. I noted a large polyp in the rectum which I decided to snare on the way out. I also noted diverticulosis which was quite extensive in his sigmoid colon.. The cecum was reached iden tified by the ileocecal valve and the appendiceal opening. It was very difficult to examine the cecum well as there was stool with particulate send i The scope was gradually brought out. Polyps were found at 10 cm from the anal verge. Two of them were very tiny. The other was a large polyp well over a cm in size. I was able to successfully snared and pieces in it appeared to be completely removed. The edge was cauterized. I injected Kaylyn ink into spot just distal to where this lesion was located. Any resection should go below these injection sites. . The scope ultimately was retroflexed in the rectum. The appearance was unremarkable except for the area where the polyp had been snared.. The scope was removed and the patient tolerated the procedure well. The prep was suboptimal in places. If this lesion in the rectum is benign he should have a repeat colonoscopy with a 2 day prep in 6 months. This would ensure re-evaluating this spot in the rectum but also allow for visualization of the entire colon with a new prep. If it is malignant then he probably will have radiation and chemotherapy perioperatively and require a colonoscopy after that for restaging. Scope withdrawal time: 8 minutes. (21 total) Sedation minutes: 55 Findings: diverticulosis and polyp Specimen(s): other (Polyps) Complications: none Post-procedure Recommendations: Other recommendation (Colonoscopy in 6 months. Two day prep.) Follow up: as needed Disposition: PACU
[2020-10-05] MEDS: MIDAZOLAM 5 MG/5 ML VIAL IV (12:16)
[2020-10-05] MEDS: fentaNYL 250 MCG/5 ML INJ IV (12:17)
--- NOTE | 2020-10-05 13:00 | SUR.PHASEII ---
Dr Landrum scrubbing in to OR. Notified of Patient SOB and low O2 sat and did not take Qvar or inhaler albuterol today. See New order.
[2020-10-05] MEDS: ALBUTEROL 2.5 MG/3 ML NEB (ADULT) INH (13:07)
--- NOTE | 2020-10-05 14:00 | SUR.PHASEII ---
Patient discharged to home with friend by this RN. Pt up, steady of feet with good color and denying SOB after Albuterol Neb Treatment. Pt states he did not do his Albuterol Treament or Qvar this am at home.
== END 2020-10-05 13:25 | disposition home or self-care (01) ==
PROVIDERS: PCP Physician Assistant; Referring Provider Specialist; Visit Provider Specialist
PROC: 0DJD8ZZ Inspection of Lower Intestinal Tract, Via Natural or Artificial Opening Endoscopic (ICD-10-PCS; CPT 45378; principal; 2020-10-05 10:00)
DX: Z12.11 Encounter for screening for malignant neoplasm of colon (principal); Z86.010 Personal history of colon polyps; J44.9 Chronic obstructive pulmonary disease, unspecified; I10 Essential (primary) hypertension; G47.33 Obstructive sleep apnea (adult) (pediatric); K57.30 Diverticulosis of large intestine without perforation or abscess without bleeding; D12.6 Benign neoplasm of colon, unspecified
CPT/HCPCS: 45385; 45380; 45381; 99152; 99153; J2250; J3010; J7613

== ENCOUNTER → 2021-03-01 10:53 | Outpatient (CLI) | payer OTHER, SELFPAY ==
[2021-03-01 13:03] LABS: COVID19 -Nasal RAPID Negative (Negative)
== END ==
PROVIDERS: PCP Physician Assistant; Visit Provider Surgery
DX: Z01.812 Encounter for preprocedural laboratory examination (principal); Z20.822 Contact with and (suspected) exposure to COVID-19
CPT/HCPCS: 87635; C9803

== ENCOUNTER 2021-03-04 10:12 | Day surgery (SDC) | payer OTHER, SELFPAY ==
[2021-03-04 10:38] VITALS: BMI 44.4
[2021-03-04] MEDS: LACTATED RINGERS 1,000 ML 42 ML IV (10:48)
[2021-03-04 10:56] VITALS: BP 183/99; PULSE 81; RESP 24; TEMP 36.1; O2SAT 95
--- NOTE | 2021-03-04 10:58 | P.HP_ITS ---
History of Present Illness History of Present Illness Date Patient Seen: 03/04/21 Time Patient Seen: 10:58 Chief complaint: FLEX SIG Narrative: 71-year-old male had a colonoscopy 4 months ago demonstrated polyp with high- grade dysplasia in it within the sigmoid colon. He is here today for surveillance. No blood per rectum no unintentional weight loss or abdominal pain. Patient History Medical History (Updated 03/04/21 @ 10:59 by Michele Moses MD) COPD (chronic obstructive pulmonary disease) Hypertension STEFFEN (obstructive sleep apnea) (~2013) Surgical History Hx of hemorrhoidectomy Hx of hernia repair Family & Social History Family History Unknown Diabetes mellitus Hypertension Sister No problems noted. Social History: household members none Tobacco & Substance use: Tobacco type cigarettes Smoking Status Former smoker alcohol intake former alcohol intake frequency holiday/special occasion Substance Use Type does not use Meds Home Medications and Allergies Home Medications Medication Instructions Recorded Confirmed Type beclomethasone dipropionate 40 2 puff INHALATION BID 09/01/18 03/04/21 History mcg/actuation HFA breath activated aerosol (Qvar RediHaler) carlos a 63 mg-alpha tab PO tab 09/01/18 10/05/18 History dyzportce-qkzsrdbi-vlucc acid-dha 17 mg chew tablet (Adult [place] Plus DHA) cholecalciferol (vitamin D3) 25 1,000 unit PO DAILY 09/01/18 10/05/20 History mcg (1,000 unit) capsule focus factor PO 09/01/18 10/05/18 History glucosam 750 mg-chondroi 100 tab PO tab 09/01/18 10/05/18 History mg-hyalur 1.65 mg-CF borate 108 mg tablet (Move Free [facility]) ipratropium 20 mcg-albuterol 100 1 puff INHALATION Q6H 09/01/18 10/05/18 History mcg/actuation mist for inhalation (Combivent Respimat) multivitamin 1 cap PO DAILY 09/01/18 10/05/18 History Blood Boost 05/10/19 History Md Liver Repair 05/10/19 History felodipine 5 mg tablet,extended 5 mg PO DAILY 05/10/19 03/04/21 History release 24 hr Gsh Cell Defense 08/09/19 History Bbjd-K-Ndygu 08/09/19 History Physio Primo 08/09/19 History Release 08/09/19 History Uricel 08/09/19 History reema extract 500 mg capsule cap PO 08/09/19 History vit C 30 mg-s.stout 250 mg-celery cap PO 08/09/19 History seed 75 mg-grape seed extrt capsule (Tart Stout) ipratropium 20 mcg-albuterol 100 2 puff INHALATION Q4H PRN 10/05/20 03/04/21 History mcg/actuation mist for inhalation (Combivent Respimat) Allergies Allergy/AdvReac Type Severity Reaction Status Date / Time No Known Drug Allergies Allergy Verified 03/04/21 10:33 Exam Vital Signs (past 8 hours): - 03/04/21 10:56 Temperature 97.0 F L Pulse Rate 81 Respiratory Rate 24 Blood Pressure 183/99 H Pulse Oximetry 95 Oxygen Delivery Method Room Air Narrative Exam Narrative: GENERAL: Obese male in no apparent distress HEENT: No scleral icterus CV: Regular rate, no peripheral edema LUNGS: No increased work of breathing. Patient speaks in full sentences without oxygen support. ABDOMEN: Soft, non-tender, non-distended NEURO: Nonfocal, normal strength throughout SKIN: Warm and dry Assessment & Plan Assessment and plan (1) Personal history of colonic polyps: Status: Acute Assessment & Plan narrative: The patient requires flexible sigmoidoscopy secondary to a polyp high-grade dysplasia that was endoscopically resected. Technical details were discussed. Risks, benefits, alternatives explained. Risks including but not limited to myocardial infarction, aspiration, bleeding, pain, missed lesion, incomplete examination, need for further radiographic studies, colonic perforation, and need for major abdominal surgery were discussed. All questions were answered to their satisfaction, and they are in agreement with this plan. Time Spent With Patient Critical Care time: I spent a total of [] minutes of critical care time on this patient's care today; this time is exclusive of procedural time.
[2021-03-04] MEDS: fentaNYL 250 MCG/5 ML INJ IV (11:17)
[2021-03-04] MEDS: MIDAZOLAM 5 MG/5 ML VIAL IV (11:17)
--- NOTE | 2021-03-04 11:18 | PM.OP.COLON ---
Operative Date/Time/Diagnoses Date of procedure: 03/04/21 Time of procedure: 11:18 Pre-op diagnosis: History of rectal polyp with high-grade dysplasia Post-op diagnosis: same Procedure & Clinicians Study performed: Sigmoidoscopy Same procedure as scheduled: Yes Indications: Surveillance status post endoscopic resection rectal polyp with high-grade dysplasia Surgeon: Michele Moses Procedure Notes Procedure in detail: Medications: Conscious sedation using 5 mg IV midazolam and 100 mcg IV of fentanyl The history and physical was performed/updated and the patient is ASA class is 3. The procedure was discussed in detail with the patient. Potential risks complications including infection, bleeding, missed diagnosis, perforation, need for surgery, and were explained. Their questions were answered and informed consent was obtained. Patient was brought to the procedure room and placed standard monitoring equipment. The patient's vital signs were monitored continuously throughout the entire procedure. Prior to starting time-out was performed. The patient was placed in the left lateral recumbent position. Procedural sedation was administered. Examination began with a thorough inspection of the perianal area there was no evidence of fissures, fistulae, external hemorrhoids or cutaneous malignancy. The colonoscopy scope was then placed into the anal canal and was advanced to the sigmoid colon. Sigmoid colon was notable for diverticulosis. The scope was then slowly withdrawn examining colon thoroughly in all directions, irrigating it of any residual stool. Within the distal rectum there was previous Kaylyn ink tattoo however there was no evidence of polyp regrowth. There was scar tissue where the previous polyp had been removed with hot snare. The patient tolerated the procedure well. They will be discharged once criteria are met. The prep was of fair quality. The sedation time was 7minutes. Specimen(s): none sent Complications: none Impression: Normal sigmoidoscopy Post-procedure Recommendations: Colonoscopy in 3 years Disposition: same day surgery
[2021-03-04 11:20] VITALS: BP 148/74; PULSE 80; RESP 16; TEMP 36.7; O2SAT 92
[2021-03-04 11:24] VITALS: BP 135/81; PULSE 77; RESP 20; O2SAT 92
[2021-03-04 11:30] VITALS: BP 135/78; PULSE 80; RESP 16; TEMP 37.3; O2SAT 96
[2021-03-04 11:38] VITALS: BP 153/68; PULSE 76; RESP 18; TEMP 37.2; O2SAT 95
== END 2021-03-04 11:50 | disposition home or self-care (01) ==
PROVIDERS: Surgery; PCP Physician Assistant; Referring Provider Specialist; Visit Provider Specialist
PROC: 0DJD8ZZ Inspection of Lower Intestinal Tract, Via Natural or Artificial Opening Endoscopic (ICD-10-PCS; CPT 45378; principal; 2021-03-04 10:45)
DX: Z12.11 Encounter for screening for malignant neoplasm of colon (principal); Z86.010 Personal history of colon polyps; K57.30 Diverticulosis of large intestine without perforation or abscess without bleeding; J45.909 Unspecified asthma, uncomplicated; I10 Essential (primary) hypertension; G47.33 Obstructive sleep apnea (adult) (pediatric)
CPT/HCPCS: 45330; 99152; J2250; J3010

== ENCOUNTER → 2021-11-11 13:03 | Outpatient (CLI) | payer OTHER, SELFPAY ==
[2021-11-11 13:50] LABS: Add Manual Diff / Slide Review NO; Basophils Absolute Auto 0 /uL (0-100); Basophils Percent Auto 0.5 % (0-2); Eosinophils Absolute Auto 200 /uL (0-450); Eosinophils Percent Auto 1.5 % (2-4); Hematocrit 42.8 % (41-53); Hemoglobin 14.9 g/dL (13.5-17.5); Lymphocytes Absolute Auto 1100 /uL (1100-4500); Lymphocytes Percent Auto 11.3 % (25-40); Mean Corpuscular HGB Conc 34.8 % (30-36); Mean Corpuscular Hemoglobin 31.1 PG (26-34); Mean Corpuscular Volume 89.5 fL (80-100); Monocytes Absolute Auto 700 /uL (0-900); Neutrophils Absolute Auto 7900 /uL (1500-7000); Neutrophils Percent Auto 79.7 % (50-75); Platelet Count 183 X10^3/uL (150-400); Red Blood Cell Count 4.79 X10^6/uL (4.5-5.9); Red Cell Distribution Width 13.9 % (11.6-14.8); White Blood Cell Count 9.9 X10^3/uL (4.5-11.0)
[2021-11-11 14:08] LABS: Hemoglobin A1C% w Est Avg Glu 5.5 % (4.0-6.0)
[2021-11-11 14:24] LABS: Alanine Aminotransferase 83 IU/L (<50); Albumin 4.3 g/dL (3.5-5.0); Albumin Globulin Ratio 1.4 (1.0-2.8); Alkaline Phosphatase 77 U/L (38-126); Aspartate Aminotransferase 43 IU/L (17-59); BUN Creatinine Ratio 21.1 (6-22); Bilirubin Total 0.5 mg/dL (0.2-1.3); Blood Urea Nitrogen 20 mg/dL (9-20); Calcium 8.9 mg/dL (8.4-10.2); Carbon Dioxide 27 mmol/L (22-32); Chloride 101 mmol/L (98-107); Cholesterol 201 mg/dL (140-199); Estimated Glomerular Filt Rate > 60 mL/min (>60); Globulin 3.1 g/dL (1.7-4.1); Glucose 112 mg/dL (80-110); HDL Cholesterol 42 mg/dL (40-60); HEMOLYSIS 18 (0-50); LDL Cholesterol Calculated 96 mg/dL (<100); Potassium 4.3 mmol/L (3.4-5.1); Sodium 140 mmol/L (137-145); Total Protein 7.4 g/dL (6.3-8.2); Triglycerides 315 mg/dL (35-150)
== END ==
PROVIDERS: PCP Physician Assistant; Referring Provider Physician Assistant; Visit Provider Physician Assistant
DX: E78.2 Mixed hyperlipidemia (principal); E66.01 Morbid (severe) obesity due to excess calories
CPT/HCPCS: 36415; 80053; 80061; 83036; 85025

== ENCOUNTER → 2022-10-30 12:04 | Outpatient (CLI) | payer OTHER, SELFPAY | PROVIDERS: PCP Internal Medicine; Referring Provider Internal Medicine; Visit Provider Internal Medicine | DX: J43.2 Centrilobular emphysema (principal); Z87.891 Personal history of nicotine dependence | CPT/HCPCS: 94060; 94618; 94726; 94729 ==

== ENCOUNTER → 2022-11-03 13:36 | Outpatient (CLI) | payer OTHER, SELFPAY ==
--- NOTE | 2022-11-03 13:38 | DI.ECHO.S_ITS ---
[place]---------+ [facility] +---------+ : : [address] : : : : [id number] : : : : Phone: [phone]+ Echocardiogram Report + + :Name: ISH ADHIKARI Study Date: 11/03/2022 Height: 70 in : :[facility] ReadingLocation: Weight: 310 lb : : Gender: Male BSA: 2.5 m2 : :: 1950 Age: 72 yrs BP: 150/78 mmHg: :Reason For Study: PULMONARY HYPERTENSION : :Ordering Physician: MARIE, : :TYRA Performed By: Nickie Loewry : :Referring: TYRA SALAZAR : + + Interpretation Summary There is mild concentric left ventricular hypertrophy. The ejection fraction is estimated to be 60-65%. Grade I diastolic dysfunction. The right ventricle is mildly dilated. The right ventricular systolic function is normal. There is mild tricuspid regurgitation. The right ventricular systolic pressure is estimated to be at least 28 mmHg based on an estimated right atrial pressure of 3 mm Hg. The ascending aorta is mildly enlarged, 3.9 cm. Procedure: A two-dimensional transthoracic echocardiogram with color flow and Doppler was performed. The study quality was technically difficult. There is no prior echocardiogram noted for this patient. The patient was in sinus bradycardia with heart rates between 57-63 bpm during the exam. Left Ventricle: The left ventricle is normal in size. There is mild concentric left ventricular hypertrophy. The ejection fraction is estimated to be 60-65%. Diastolic parameters suggest a relaxation abnormality of the left ventricle, consistent with probable normal filling pressures. Right Ventricle: The right ventricle is mildly dilated. The right ventricular systolic function is normal. Atria: The left atrial size is normal. Right atrial size is normal. There is no Doppler evidence for an interatrial shunt. Mitral Valve: The mitral valve is normal in structure and function. There is trace mitral regurgitation. Aortic Valve: The aortic valve is not well visualized. The aortic valve opens well. There is no aortic valve stenosis. No aortic regurgitation is present. Tricuspid Valve: The tricuspid valve is normal in structure and function. There is mild tricuspid regurgitation. The right ventricular systolic pressure is estimated to be at least 28 mmHg based on an estimated right atrial pressure of 3 mm Hg. Pulmonic Valve: The pulmonic valve is not well visualized. There is no pulmonic valvular regurgitation. Great Vessels: The aortic root is normal size. The ascending aorta is mildly enlarged. The IVC is of normal diameter and collapses greater than 50% with a sniff. This suggests a low right atrial pressure of 3 mm Hg. Pericardium/ Pleura There is no pericardial effusion. There is no pleural effusion. MMode/2D Measurements & Calculations LVIDd: 5.8 cm LVOT diam: 2.4 cm LVIDs: 3.7 cm Ao root diam: 3.9 cm FS: 36.0 % asc Aorta Diam: 4.0 cm EPSS: 1.1 cm IVSd: 1.1 cm LVPWd: 1.3 cm LV pope. diameter/BSA (cm/m^2): 2.3 LV sys. diameter/BSA (cm/m^2): 1.5 LA A2 area: 22.0 cm2 RA long axis: 6.4 cm LA A4 area: 24.3 cm2 RA area: 23.3 cm2 LA length (vol): 6.4 cm RA vol: 71.4 ml LA vol: 70.4 ml RA : 28.4 ml/m2 LA vol index: 28.0 ml/m2 IVC diam: 2.1 cm RVD1 (basal): 4.1 cm RVD2 (mid): 3.1 cm TAPSE: 2.4 cm Doppler Measurements & Calculations Ao V2 max: 156.2 cm/sec LVOT Max Ariel: 106.3 cm/sec Ao V2 mean: 112.7 cm/sec LV V1 max P.5 mmHg Ao max P.8 mmHg LV V1 VTI: 22.3 cm Ao mean P.5 mmHg LINO(I,D): 3.0 cm2 Ao V2 VTI: 33.0 cm LINO(V,D): 3.0 cm2 sev ratio: 0.67 LINO indexed to BSA (cm^2/m^2): 1.2 MV E max ariel: 82.4 cm/sec TR max ariel: 262.2 cm/sec MV A max ariel: 96.0 cm/sec TR max P.5 mmHg MV E/A: 0.86 PA V2 max: 81.7 cm/sec Med Peak E' Ariel: 6.9 cm/sec PA V2 mean: 59.7 cm/sec E/E' med: 12.0 PA mean P.6 mmHg Lat Peak E' Ariel: 7.9 cm/sec E/E' lat: 10.4 E/e' average: 11.2 MV dec time: 0.27 sec Pulm A Revs Ariel: 25.3 cm/sec SV(LVOT): 98.5 ml Pulm A Revs Dur: 0.16 sec Reading Physician:03:17 PM
== END ==
PROVIDERS: PCP Internal Medicine; Referring Provider Internal Medicine; Visit Provider Internal Medicine
DX: I07.1 Rheumatic tricuspid insufficiency (principal); I27.20 Pulmonary hypertension, unspecified; I77.89 Other specified disorders of arteries and arterioles
CPT/HCPCS: 93306

== ENCOUNTER 2022-12-05 08:14 | Outpatient (RCR) | payer OTHER, SELFPAY | END 2022-12-05 10:14 | LOC: PUL 08:14 | PROVIDERS: PCP Internal Medicine; Referring Provider Internal Medicine; Visit Provider Internal Medicine | DX: J43.9 Emphysema, unspecified (principal); J96.11 Chronic respiratory failure with hypoxia | CPT/HCPCS: G0237; G0238 ==

== ENCOUNTER → 2023-04-28 12:32 | Outpatient (CLI) | payer MEDICARE, SELFPAY ==
--- NOTE | 2023-04-28 12:44 | DI.CT.S_ITS ---
PROCEDURE: CT CHEST HIGH RESOLUTION INDICATIONS: Centrilobular emphysema TECHNIQUE: Noncontrast 1.0 and 5.0 mm thick contiguous axial sections from the pulmonary apex to the posterior costophrenic angles, with 7 mm thick coronal and sagittal MIP reformats. 1 mm thick dynamic expiratory images acquired through the upper, mid, and lower lungs. 1.0 mm thick axial sections acquired from the gaudencio to the posterior costophrenic angles in the prone end-inspiration position. For radiation dose reduction, the following was used: automated exposure control, adjustment of mA and/or kV according to patient size. COMPARISON: None. FINDINGS: Image quality: Diagnostic Lungs and pleura: On expiratory views, there are mild scattered areas of air trapping, likely within physiologic limits. No dense airspace disease. No pleural effusions. Scattered scarring and atelectasis. Prone images were not obtained. Tiny pulmonary nodules are present, most notably a 5 mm subpleural nodule on image 2/160. Mediastinum, heart, and esophagus: Mildly patulous distal esophagus, nonspecific. Normal heart size. No pathologic lymphadenopathy by size criteria. Chest wall and thyroid: There is mild gynecomastia. No actionable thyroid nodule identified. Upper abdomen: Suspected hepatic steatosis. No gross abnormality otherwise on this noncontrast study. Bones: There are degenerative changes. IMPRESSION: No significant findings of interstitial lung disease. Scattered scarring and atelectasis present, which are nonspecific for fibrosis. Prone images were not obtained. There are small pulmonary nodules, index nodule in the subpleural region of the right lower lobe measuring 5 mm (2/160). Given reported emphysema, consider 1 year follow-up given patient's presumed risk factors. Other findings as above. Dictated by: Ino Sow M.D. on 04/28/2023 at 13:00 Approved by: Ino Sow M.D. on 04/28/2023 at 13:11
== END ==
LOC: CT 12:32
PROVIDERS: PCP Internal Medicine; Referring Provider Urology; Visit Provider Urology
DX: J43.2 Centrilobular emphysema (principal); R91.8 Other nonspecific abnormal finding of lung field
CPT/HCPCS: 71250

== ENCOUNTER 2024-05-12 09:54 | Day surgery (SDC) | payer MEDICARE, SELFPAY ==
--- NOTE | 2024-05-12 | PATH_ITS ---
[facility] Accession Number: [id number] No. of containers..01 Tissue . 01 Material submitted: . colon - ASCENDING COLON POLYP . 01 Diagnosis: ASCENDING COLON POLYP: Tubulovillous adenoma. No high-grade dysplasia or malignancy. MRV 05/18/2024 1326 Local . 01 Electronically signed: . Rhonda Littlejohn MD, Pathologist NPI- [id number] . 01 Gross description: . Received in formalin with two identifiers and ascending colon polyp, are multiple tim soft tissue fragments admixed with debris ranging from 0.1 x 0.1 x 0.1 cm to 2.0 x 1.5 x 1.5 cm. The two largest fragments are serially sectioned, and the specimen is submitted entirely as follows: . A1-A2: Largest fragment. A3: Second largest fragment. A4: Remaining filtered fragment. ([id number]) /MRV 05/17/2024 1848 Local . 01 Pathologist provided ICD-10: D12.2 . 01 CPT . 873933 Specimen Comment: A courtesy copy of this report has been sent to [facility] Pathology Performed at: [address] [address], [place], [place] [id number] MD Damon Christensen MD Phone: [phone]
[2024-05-12 10:18] VITALS: BP 164/86; PULSE 83; RESP 18; TEMP 36.2; O2SAT 91
[2024-05-12] MEDS: LACTATED RINGERS 1,000 ML 100 ML IV (10:29)
--- NOTE | 2024-05-12 10:32 | P.HP_ITS ---
History of Present Illness History of Present Illness Date Patient Seen: 05/12/24 Time Patient Seen: 10:32 Chief complaint: Screening Colonoscopy Narrative: Hamlet is a 74-year-old man with a history of a tubulovillous adenoma with high- grade dysplasia [place] [address] Osborne. He had a follow up colonoscopy in [address] Moses and no evidence of residual polyp was noted. No family history of colon cancer. [facility] Medical History (Updated 05/12/24 @ 10:33 by Dylan Negro MD) Hypertension STEFFEN (obstructive sleep apnea) (~2013) COPD (chronic obstructive pulmonary disease) Surgical History Hx of hemorrhoidectomy Hx of hernia repair Family History Unknown Diabetes mellitus Hypertension Sister No problems noted. Social History marital status: unknown household members: none Smoking Status: Former smoker alcohol intake: former substance use type: does not use Meds Home Medications and Allergies Home Medications Medication Instructions Recorded Confirmed Type multivitamin 1 cap PO DAILY 09/01/18 01/19/24 History albuterol sulfate 90 mcg/actuation 2 puff inhalation Q6H PRN 08/12/23 01/19/24 History aerosol inhaler budesonide 160 mcg-glycopyr 9 2 inh inhalation BID PRN Wheezing 08/12/23 05/12/24 History mcg-formot 4.8 mcg/actuation HFA inhaler carvedilol 3.125 mg tablet 6.25 mg PO BID 08/12/23 05/12/24 History ipratropium 20 mcg-albuterol 100 1 puff inhalation QID Shortness Of 08/12/23 05/12/24 History mcg/actuation mist for inhalation Breath (Combivent Respimat) rosuvastatin 5 mg tablet 5 mg PO DAILY 08/12/23 05/12/24 History valsartan 160 mg tablet 160 mg PO DAILY 08/12/23 05/12/24 History albuterol sulfate 2.5 mg/0.5 mL 5 mg inhalation Q6H PRN shortness 10/27/23 05/12/24 Rx solution for nebulization of breath or wheezing #90 ea sodium,potassium,mag sulfates 17.5 See Rx Instructions PO .COMPLEX 02/24/24 Rx gram-3.13 gram-1.6 gram oral soln #354 mL (Suprep Bowel Prep Kit) Allergies Allergy/AdvReac Type Severity Reaction Status Date / Time No Known Drug Allergies Allergy Verified 05/12/24 10:09 Exam Vital Signs (past 8 hours): - 05/12/24 10:18 Temperature 97.1 F L Pulse Rate 83 Respiratory Rate 18 Blood Pressure 164/86 H Pulse Oximetry 91 Oxygen Delivery Method Room Air Oxygen Delivery Method Room Air Const Nutritional Appearance: obese Assessment & Plan Assessment and plan (1) High grade dysplasia in colonic adenoma: Status: Acute Plan Colonoscopy due to a history of high-grade dysplasia and a tubulovillous adenoma found in 2019 Time-Based Coding :: [TOTAL MINUTES] spent with patient and on the chart (including review of chart, obtaining history, exam, reviewing outside data, placing orders, documenting exam and treatment plan, and counseling patient) on [DATE]. PROFEE [employer] Document charge(s): No
[2024-05-12 11:51] VITALS: BP 115/49; PULSE 87; RESP 19; TEMP 36.7; O2SAT 93
--- NOTE | 2024-05-12 11:51 | PM.OP.COLON ---
Operative Date/Time/Diagnoses Date of procedure: 05/12/24 Time of procedure: 11:51 Pre-op diagnosis: History of a tubulovillous adenoma with high-grade dysplasia Post-op diagnosis: same Procedure & Clinicians Study performed: Colonoscopy Same procedure as scheduled: Yes Surgeon: Dylan Negro Procedure Notes Procedure in detail: Surgeon: Dylan Negro MD Anesthesia: Jef Payne.Lavell Procedure: The patient was brought to the endoscopy suite, placed in left lateral decubitus position. The patient was connected to monitoring devices. A time-out was performed. Sedation was administered. Once the patient was adequately sedated, a digital rectal exam was performed and was normal. The scope was then inserted. It was difficult to advance past transverse colon. We saw a 5-6 cm mass somewhere near the hepatic flexure. The mass was partially removed with a hot snare and multiple passes. We injected tattoo ink just distal to the mass. Because we were uncertain if we could reach the cecum due to his body habitus a single hemoclip was applied just proximal to the site of the mass so that the location could be confirmed on CT scan. We suctioned one small piece of the mass into the trap and a larger piece was removed by [place] net. We then reinserted the colonoscope. Through repositioning and abdominal pressure we were eventually able to reach the cecum. The appendiceal orifice was photographed. The colonoscope was gradually withdrawn over greater than 6 minutes. The mass did appear to be near the hepatic flexure on withdrawal. The tattoo ink in the rectum was observed and there was no evidence of any recurrent polyp there. The scope was retroflexed in the rectum. No other abnormalities were seen. The scope was straightened and removed. The patient was awakened and brought to recovery. Scope withdrawal time: 22 minutes Sedation time: 56 minutes EBL: 5 mL Findings: No evidence of residual polypoid tissue in the rectum, a 5-6 cm fungating mass near the hepatic flexure Post-procedure Disposition: PACU
[2024-05-12 11:54] VITALS: BP 114/53; PULSE 93; RESP 22; TEMP 36.7; O2SAT 94
[2024-05-12 12:02] VITALS: BP 132/63; PULSE 84; RESP 17; TEMP 36.7; O2SAT 94
[2024-05-12 12:17] VITALS: BP 146/66; PULSE 80; RESP 20; TEMP 36.6; O2SAT 94
[2024-05-12 12:25] LABS: Add Manual Diff / Slide Review NO; Basophils Absolute Auto 0 /uL (0-100); Basophils Percent Auto 0.2 % (0-2); Eosinophils Absolute Auto 100 /uL (0-450); Eosinophils Percent Auto 1.4 % (2-4); Hematocrit 38.2 % (41-53); Hemoglobin 12.9 g/dL (13.5-17.5); Lymphocytes Absolute Auto 700 /uL (1100-4500); Lymphocytes Percent Auto 9.7 % (25-40); Mean Corpuscular HGB Conc 33.8 % (30-36); Mean Corpuscular Hemoglobin 30.2 PG (26-34); Mean Corpuscular Volume 89.3 fL (80-100); Monocytes Absolute Auto 500 /uL (0-900); Monocytes Percent Auto 6.1 % (3-14); Neutrophils Absolute Auto 6300 /uL (1500-7000); Neutrophils Percent Auto 82.6 % (50-75); Platelet Count 160 X10^3/uL (150-400); Red Blood Cell Count 4.28 X10^6/uL (4.5-5.9); White Blood Cell Count 7.6 X10^3/uL (4.5-11.0)
[2024-05-12 12:41] LABS: Alanine Aminotransferase 37 IU/L (<50); Albumin 3.9 g/dL (3.5-5.0); Albumin Globulin Ratio 1.6 (1.0-2.8); Alkaline Phosphatase 54 U/L (38-126); Aspartate Aminotransferase 31 IU/L (17-59); Bilirubin Total 0.4 mg/dL (0.2-1.3); Blood Urea Nitrogen 9 mg/dL (9-20); Calcium 8.3 mg/dL (8.4-10.2); Carbon Dioxide 28 mmol/L (22-32); Chloride 103 mmol/L (98-107); Estimated Glomerular Filt Rate > 60 mL/min (>60); Globulin 2.5 g/dL (1.7-4.1); Glucose 121 mg/dL (80-110); HEMOLYSIS < 15 (0-50); Potassium 3.9 mmol/L (3.4-5.1); Sodium 138 mmol/L (137-145); Total Protein 6.4 g/dL (6.3-8.2)
[2024-05-12 13:11] LABS: Carcinoembryonic Antigen 2.9 ng/mL (0.1-3.0)
== END 2024-05-12 12:43 | disposition home or self-care (01) ==
PROVIDERS: Surgery; PCP Internal Medicine; Referring Provider Internal Medicine; Visit Provider Surgery
PROC: 0DJD8ZZ Inspection of Lower Intestinal Tract, Via Natural or Artificial Opening Endoscopic (ICD-10-PCS; CPT 45378; principal; 2024-05-12 11:00)
DX: Z12.11 Encounter for screening for malignant neoplasm of colon (principal); Z86.0101 Personal history of adenomatous and serrated colon polyps; D12.2 Benign neoplasm of ascending colon
CPT/HCPCS: 45381; 45385; 80053; 82378; 85025; J2704

== ENCOUNTER → 2024-05-16 08:53 | Outpatient (CLI) | payer MEDICARE, SELFPAY ==
--- NOTE | 2024-05-16 08:54 | DI.CT.S_ITS ---
PROCEDURE: CT CHEST ABD PEL W CON INDICATIONS: colon mass TECHNIQUE: After the administration of intravenous contrast, 5 mm thick sections acquired from the lung apices to the symphysis. 5 mm coronal and sagittal reformats were performed, with additional 7 mm MIP reformats through the lungs. For radiation dose reduction, the following was used: automated exposure control, adjustment of mA and/or kV according to patient size. COMPARISON: [facility], CT, CT CHEST HIGH RESOLUTION, 04/28/2023, 12:37. FINDINGS: Image quality: Excellent. CHEST: Lower Neck: No enlarged lymph nodes. Thyroid: No thyroid nodules which require sonographic follow up, per consensus guidelines. Axillae: No enlarged lymph nodes. Chest Wall: Gynecomastia. Lungs and Pleura: No pneumothorax or pleural effusions. No new or enlarging pulmonary nodules. A few small ground-glass pulmonary nodules. For example: Right lower lobe subpleural 0.6 cm, (2/167), unchanged. Mild centrilobular emphysema. Heart: Heart size is normal. Trace pericardial fluid. Thoracic Vessels: The aorta and pulmonary arteries demonstrate normal size. Mediastinum and Caitlyn: No enlarged lymph nodes. Esophagus: No wall thickening. No hiatal hernia. ABDOMEN: Liver: No solid mass. Right liver appears prominent. Hepatic steatosis. Gallbladder: No radiopaque gallstones or wall thickening. Biliary ducts: No biliary dilation. Pancreas: No ductal dilation. Spleen: Size is within normal limits. Adrenal Glands: No adrenal nodules. Kidneys and Ureters: No hydronephrosis. No solid mass. No complex renal cystic lesion which requires follow up. 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 Stomach and Bowel: Diverticulosis. Clip in the ascending colon. Mild associated colonic thickening, (5/70). No fluid collection. No free air. No suspicious lymph nodes identified. Normal appendix. No small bowel obstruction. The stomach is not distended. Peritoneum: No abnormal intraperitoneal fluid. No free air. Ventral Wall: Fat containing ventral abdominal wall hernia. Abdominal Nodes: No retroperitoneal or mesenteric adenopathy by size criteria. Vessels: Aorta and inferior vena cava are normal in size. PELVIS: Pelvic Organs: Prostatomegaly. Bladder: No bladder wall thickening. Pelvic Nodes: No enlarged lymph nodes. Miscellaneous: No inguinal hernias are seen. Bones: No aggressive osseous abnormality. IMPRESSION: 1. Right colonic mass seen at the surgical clip. 2. No suspicious adenopathy. No free fluid. No focal liver lesion is identified. 3. No new or enlarging pulmonary nodules. A few small pulmonary nodules. Dictated by: Tristen Mendez M.D. on 05/16/2024 at 12:39 Approved by: Tristen Mendez M.D. on 05/16/2024 at 13:08
== END ==
PROVIDERS: PCP Internal Medicine; Referring Provider Surgery; Visit Provider Surgery
DX: K63.89 Other specified diseases of intestine (principal); R91.8 Other nonspecific abnormal finding of lung field; N62 Hypertrophy of breast; J43.2 Centrilobular emphysema; K76.0 Fatty (change of) liver, not elsewhere classified; K57.90 Diverticulosis of intestine, part unspecified, without perforation or abscess without bleeding; K43.9 Ventral hernia without obstruction or gangrene; N40.0 Benign prostatic hyperplasia without lower urinary tract symptoms
CPT/HCPCS: 71260; 74177; Q9967

== ENCOUNTER 2024-05-31 09:22 | Inpatient (IN) | payer MEDICARE, SELFPAY ==
[2024-05-23 13:32] VITALS: BMI 47.3
[2024-05-31] VITALS (12 sets, daily range): BP systolic 106–184; BP diastolic 42–88; PULSE 63–94; RESP 15–19; TEMP 36.1–36.6; O2SAT 91–96; BMI 47.3
--- NOTE | 2024-05-31 | PATH_ITS ---
[facility] Accession Number: [id number] No. of containers..01 Tissue . 01 Material submitted: . colon - RIGHT COLON AND TERMINAL ILEUM . 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 Histologically unremarkable terminal ileum. Appendix with periappendiceal fat necrosis. Twelve histologically unrmarkable lymph nodes. Negative for malignancy. MRV 06/03/2024 1452 Local . 01 Electronically signed: . Silvia Calzada DO, Pathologist NPI- [id number] . 01 Gross description: . Received in formalin with two identifiers and right colon and terminal ileum is a right colon with attached ileum (3.7 x 1.5 cm), colon (cecum 36.5 cm in length and ranging from 4.0-6.1 cm in diameter), appendix (6.2 x 0.8 cm), and attached fat extending out to 7.2 cm. The ileal margin is inked blue, the colon margin is inked black, and the presumed mesenteric margin is inked green. . The serosa is tim and smooth with a small amount of creeping fat and no puckering identified. The lumen contains a small amount of green-brown, semisolid fecal material. The mucosa has a sessile lesion with raised borders (2.2 x 1.5 cm) located in the ascending colon adjacent to an area of tattoo ink and a metal cylindrical marking clip. The lesion is grossly confined to the mucosa. The remaining mucosa is tim and velvety with normal-appearing folds, the maya average 0.2 cm thick, and no additional lesions identified. . The appendix has tim smooth serosa and an unremarkable patent lumen that is 0.2 cm in diameter. The maya average 0.3 cm thick with no perforation or lesions identified. Palpation reveals a firm area of fat near the cecum measuring 6.1 x 3.4 x 1.9 cm. Sectioning reveals a pale yellow, slightly firm cut surface with no distinct lesions identified. Fifteen tim to correa lymph node candidates are identified ranging from 0.2-0.6 cm in greatest dimension. Foreign Student Adviser sections are submitted as follows: . A1: Rep margins en face. A2-A5: Entire lesion. A6: Normal colon. A7: Normal ileum. A8: Ileocecal valve. A9: Appendix to include one-half of bisected distal tip and cross-sections. A10: Firm area of fat. A11: Five intact lymph node candidates. A12: Six intact lymph node candidates. A13: Five intact lymph node candidates. ([id number]) /MRV 06/02/2024 1228 Local . 01 Pathologist provided ICD-10: D12.2 . 01 CPT . 188738 Specimen Comment: A courtesy copy of this report has been sent to [phone] Performed at: [address] [facility] [address], [place], [place] [id number] MD Damon Christensen MD Phone: [phone]
[2024-05-31] MEDS: LACTATED RINGERS 1,000 ML 42 ML IV ×2 (10:27→14:44)
--- NOTE | 2024-05-31 12:27 | PM.PREOP ---
Pre-operative Note COVID-19 COVID-19 status: Not tested Interval Note History & Physical reviewed/Exam performed by Physician: Yes Changes to H&P: No ASA Class (for procedural sedation): III
[2024-05-31] MEDS: AMPICILLIN/SULBACTAM 3 GM 3 GM in SODIUM CHLORIDE 0.9% 100 ML IV (13:50)
--- NOTE | 2024-05-31 14:22 | SUR.OPER ---
Supine on padded OR bed, head on pillow, bed extenders applied on both sides, arms padded and tucked at sides, legs uncrossed, safety belt at thigh, padded safety straps applied across upper thighs and chest, tape over blanket over lower legs, pillow under knees, padded foot board secured in place. Pressure points padded, position approved by anesthesia and surgeon in room at time of positioning.
[2024-05-31] MEDS: BUPIVACAINE 0.5% W/ EPI (PF) 30 ML VIAL INJ (14:47)
[2024-05-31] MEDS: BUPIVACAINE LIPOSOME 266 MG/20 ML VIAL INJ (14:48)
[2024-05-31] MEDS: ACETAMINOPHEN IV 1,000 MG/100 ML VIAL 400 MG IV (17:14)
--- NOTE | 2024-05-31 17:27 | P.OP_ITS ---
Operative Date/Time/Diagnoses Date of procedure: 05/31/24 Time of procedure: 17:27 Pre-op diagnosis: Tubulovillous adenoma of the right colon Post-op diagnosis: same Procedure & Clinicians Procedure: Laparoscopic-assisted right hemicolectomy Same procedure as scheduled: Yes Surgeon: Dylan Negro Senior Interactive Producer: Nicholas Schaffer Anesthesia Type: General Operative Notes Procedure in detail: Operation: Laparoscopic assisted right hemicolectomy Surgeon: Angela JORDAN Senior Interactive Producer: Nicholas BARNES provided assistance with exposure, retraction and closure of incisions. Anesthesia: General endotracheal anesthesia The patient is a 74-year-old obese man who rather large tubulovillous adenoma in his right colon on a recent colonoscopy that was unresectable. Unasyn was administered. The patient was brought to the operating room and placed on the table in the supine position. General endotracheal anesthesia was induced. A Lombardi catheter was placed. The abdomen was prepped and draped in the usual fashion and a time-out was performed. Because of his abdominal obesity 2 cm cut down incision was created a few cm superior into the right of the umbilicus. Dissection was carried down to the anterior sheath which was scored with cautery. The muscle fibers were split bluntly revealing the posterior sheath and peritoneum which was grasped between tonsil clamps and divided sharply with Metzenbaum scissors. A Naeem port was placed and the abdomen was insufflated to 15 mmHg. The camera was inserted and there was no evidence of any injury from the entry. 5 mm ports were placed in the right upper quadrant, right lower quadrant and right mid abdomen under direct vision. We explored the abdomen. The tattoo ink was seen in the ascending colon near the hepatic flexure. We started by taking down lateral attachments of the ascending colon to the peritoneal sidewall. We started to reflect the hepatic flexure medially and inferiorly. We carefully dissected the right transverse mesocolon off of duod enum staying in the natural cleavage plane. We continued to reflect the ascending colon medially.. We then mobilized the cecum and the mesentery to the terminal ileum off of the sidewall. Once the bowel was sufficiently mobilized we removed the laparoscopic equipment and created a 8 cm transverse incision in the right upper quadrant. An Slade retractor was placed into the wound and the right colon was exteriorized. We then created mesenteric windows along the mesenteric border of terminal ileum and another along the proximal transverse colon just proximal to right branch of the middle colic artery. We then lined up the terminal ileum and transverse colon and a 3-0 silk stitch was placed at the crotch. Blue towels were placed around the bowel and enterotomies were created. A [id number] functional end-to-end anastomosis was created using the 75 mm linear MICHELLE stapler with blue loads. The enterotomies were closed in a hand-sewn fashion with a 3-0 PDS inner layer and multiple interrupted 0 silk sutures for an outer layer. The Powerseal was used to take down the mesentery. The ileocolic artery and vein were individually tied off with 0 silks. The anastomosis appeared well perfused and patent and allowed to fall back into the right abdomen. We then closed the transverse incision in 2 layers using 0 PDS suture in a running fashion. The Cm port incision was closed with 2 interrupted 0 Vicryl sutures. The skin incisions were closed violeta. EBL: 50 mL Specimen: Terminal ileum, appendix and right colon. Post-operative Condition: stable Disposition: PACU
[2024-05-31] MEDS: LACTATED RINGERS 1,000 ML 100 ML IV (19:24)
[2024-05-31] MEDS: ACETAMINOPHEN 325 MG TABLET 650 MG PO (23:21)
[2024-05-31] MEDS: IBUPROFEN 600 MG TABLET PO (23:21)
[2024-06-01 06:34] LABS: Add Manual Diff / Slide Review NO; Basophils Absolute Auto 0 /uL (0-100); Basophils Percent Auto 0.1 % (0-2); Eosinophils Absolute Auto 0 /uL (0-450); Hematocrit 37.4 % (41-53); Hemoglobin 12.6 g/dL (13.5-17.5); Lymphocytes Absolute Auto 700 /uL (1100-4500); Mean Corpuscular HGB Conc 33.7 % (30-36); Mean Corpuscular Volume 88.9 fL (80-100); Monocytes Absolute Auto 1000 /uL (0-900); Monocytes Percent Auto 6.6 % (3-14); Neutrophils Absolute Auto 12600 /uL (1500-7000); Neutrophils Percent Auto 88.3 % (50-75); Platelet Count 172 X10^3/uL (150-400); Red Blood Cell Count 4.21 X10^6/uL (4.5-5.9); White Blood Cell Count 14.3 X10^3/uL (4.5-11.0)
[2024-06-01 06:47] LABS: BUN Creatinine Ratio 15.6 (6-22); Blood Urea Nitrogen 19 mg/dL (9-20); Calcium 7.8 mg/dL (8.4-10.2); Carbon Dioxide 32 mmol/L (22-32); Chloride 98 mmol/L (98-107); Estimated Glomerular Filt Rate > 60 mL/min (>60); Glucose 132 mg/dL (80-110); HEMOLYSIS < 15 (0-50); Potassium 4.2 mmol/L (3.4-5.1); Sodium 137 mmol/L (137-145)
[2024-06-01] MEDS: ALBUTEROL 2.5 MG/3 ML NEB (ADULT) INH ×2 (07:57→14:17)
[2024-06-01] MEDS: BUDESONIDE 0.5 MG/2 ML NEB INH (07:57)
[2024-06-01 08:00] VITALS: BP 131/48; PULSE 62; RESP 17; TEMP 36.4; O2SAT 94
[2024-06-01] MEDS: HYDROCODONE/ACET 5/325 TABLET 2 TAB PO ×2 (08:23→14:33)
[2024-06-01] MEDS: IBUPROFEN 600 MG TABLET PO ×2 (08:24→14:33)
[2024-06-01] MEDS: carvediloL 3.125 MG TABLET 6.25 MG PO (08:24)
[2024-06-01] MEDS: SODIUM CHLORIDE 0.9% FLUSH 10 ML IV (09:00)
[2024-06-01 09:09] VITALS: PULSE 78; RESP 16; O2SAT 96
--- NOTE | 2024-06-01 12:35 | PM.PN.IH.1 ---
Subjective Subjective Date Patient Seen: 06/01/24 Time Patient Seen: 12:35 Interval history: Doing well Maria C came out this morning No flatus yet Exam Vital Signs (past 8 hours): - 06/01/24 08:00 06/01/24 09:09 Temperature 97.5 F L Pulse Rate 62 78 Respiratory Rate 17 16 Blood Pressure 131/48 L Pulse Oximetry 94 96 Oxygen Delivery Method Nasal Cannula Oxygen Flow Rate 2 2 Oxygen Delivery Method Nasal Cannula Oxygen Flow Rate 2 Narrative Exam Narrative: Abdomen soft, appropriately tender Objective Labs 06/01/24 06:10 06/01/24 06:10 Labs: Laboratory Results - last 24 hr 06/01/24 06:10 WBC 14.3 H RBC 4.21 L Hgb 12.6 L Hct 37.4 L MCV 88.9 MCH 30.0 MCHC 33.7 RDW 14.0 Plt Count 172 Neut % (Auto) 88.3 H Lymph % (Auto) 5.0 L Barrow % (Auto) 6.6 Eos % (Auto) 0.0 L Baso % (Auto) 0.1 Neut # (Auto) 08766 H Lymph # (Auto) 700 L Barrow # (Auto) 1000 H Eos # (Auto) 0 Baso # (Auto) 0 Sodium 137 Potassium 4.2 Chloride 98 Carbon Dioxide 32 BUN 19 Creatinine 1.22 Estimated GFR > 60 BUN/Creatinine Ratio 15.6 Glucose 132 H Calcium 7.8 L PFSH Medical History (Updated 05/23/24 @ 14:57 by Carly Mackey RN) HLD (hyperlipidemia) Hypertension STEFFEN (obstructive sleep apnea) (~2013) COPD (chronic obstructive pulmonary disease) Surgical History (Updated 05/23/24 @ 13:57 by Carly Mackey RN) Hx of colonoscopy (05/12/24) Hx of hemorrhoidectomy Hx of hernia repair Family History Unknown Diabetes mellitus Hypertension Sister No problems noted. Social History marital status: unknown household members: none Smoking Status: Former smoker alcohol intake: former substance use type: does not use Assessment & Plan Assessment and plan (1) Colonic mass: Status: Acute Plan Advance diet when passing some flatus Lovenox Time-Based Coding :: [TOTAL MINUTES] spent with patient and on the chart (including review of chart, obtaining history, exam, reviewing outside data, placing orders, documenting exam and treatment plan, and counseling patient) on [DATE]. PROFEE Elastic Yarn Twister Helper Document charge(s): No
--- NOTE | 2024-06-01 13:51 | CM.DANOTE ---
Initial DCP Assessment Note Pt is a 74 yo male, resident of [place] on [facility] , known colon mass now POD#1 from Rt hemicolectomy by Dr Negro. PCP: Hannah Heard Payer: ES MARTINEZ Reviewed chart, pt discussed in multidisciplinary rounds this morning. Patient's diet has not been advanced. Lombardi out. Patient lives alone, independently in [place] and plans to return. No barriers identified at this time to patient's safe discharge home w/friends to assist as needed; close outpatient f/u recommended. CM team will plan to follow clinical course closely in case any DC needs or concerns arise. RUBEN Bhatti Discharge Planning/Care Management CM Discharge Assessment Start: 06/01/24 13:47 Freq: Status: Active Protocol: Document 06/01/24 13:48 DENZEL (Rec: 06/01/24 13:51 DENZEL [id number]) Discharge Planning Assessment Assigned Measuring Machine Operator RUBEN Chaves DPOA/Assigned Designee Name Rossy Dunnebecky, friend Contact Information [phone] Advance Directives? Yes Advance Directives on File No History Provided By Patient,Medical Record Has Patient been admitted in last 30 No days? Prior Living Arrangements House Household Members none Type of transporation used prior to Drives own vehicle admit Independent with ADL's Yes Is patient alert and oriented? Yes Caregiver for Another No Barriers to Discharge No Comment No needs at discharge anticipated. Friend to support throughout recovery. Discharge Plan Home Transportation Arrangement Friends Referrals Initiated None needed
[2024-06-01 14:22] VITALS: PULSE 71; RESP 16; O2SAT 92
[2024-06-01] MEDS: VALSARTAN 80 MG TABLET 160 MG PO (14:32)
[2024-06-01] MEDS: ENOXAPARIN 40 MG/0.4 ML SYRINGE SUBCUT ×2 (14:32→20:29)
[2024-06-01] MEDS: ALBUTEROL/IPRATROPIUM 3 ML AMPUL INH (16:36)
[2024-06-01 16:38] VITALS: RESP 16
[2024-06-01] MEDS: HYDROMORPHONE 0.5 MG INJ IV (18:51)
[2024-06-01 20:00] VITALS: BP 92/38; PULSE 69; RESP 19; TEMP 36.2; O2SAT 93
--- NOTE | 2024-06-01 20:01 | PC.NURSE ---
security shift manager: Pt BP was 93/32 with MAP of 55, called and informed Dr Drummond. Orders in for 500 ml bolus of LR, follow up with vitals.
[2024-06-01] MEDS: ATORVASTATIN 20 MG TABLET 10 MG PO (20:13)
[2024-06-01] MEDS: LACTATED RINGERS 500 ML 1000 ML IV (20:20)
[2024-06-02] VITALS (7 sets, daily range): BP systolic 102–129; BP diastolic 42–59; PULSE 62–80; RESP 20–24; TEMP 36.6; O2SAT 94–97
[2024-06-02] MEDS: HYDROCODONE/ACET 5/325 TABLET 1 TAB PO ×3 (02:20→17:47)
[2024-06-02] MEDS: ALBUTEROL/IPRATROPIUM 3 ML AMPUL INH ×3 (07:26→20:27)
[2024-06-02] MEDS: BUDESONIDE 0.5 MG/2 ML NEB INH ×2 (07:26→20:27)
[2024-06-02] MEDS: IBUPROFEN 600 MG TABLET PO ×2 (08:49→17:47)
[2024-06-02] MEDS: ENOXAPARIN 40 MG/0.4 ML SYRINGE SUBCUT ×2 (08:49→20:27)
[2024-06-02] MEDS: SODIUM CHLORIDE 0.9% FLUSH 10 ML IV ×2 (08:50→20:28)
--- NOTE | 2024-06-02 10:48 | CM.DPNOTE ---
DCP Cont Reviewed chart. Patient discussed in multidisciplinary rounds. Patient is now POD2 from abd surgery, clears will likely be advanced as patient is tolerating and has had a BM. Plan remains discharge home w/close outpatient follow up. Patient is at functional and cognitive baseline. No discharge needs has been identified by this CM team. CM team following clinical course closely in case any discharge needs or concerns arise. DENZEL
--- NOTE | 2024-06-02 12:55 | PM.PN.IH.1 ---
Subjective Subjective Date Patient Seen: 06/02/24 Time Patient Seen: 12:56 Interval history: Passing flatus and stool. He was more mobile today but still feels quite weak. Exam Vital Signs (past 8 hours): - 06/02/24 07:00 06/02/24 07:27 06/02/24 07:35 Pulse Rate 72 80 Respiratory Rate 20 22 Blood Pressure Pulse Oximetry 95 94 Oxygen Delivery Method Nasal Cannula Nasal Cannula Nasal Cannula Oxygen Flow Rate 3 3 06/02/24 08:44 06/02/24 11:54 Pulse Rate 62 Respiratory Rate 22 Blood Pressure 102/59 L Pulse Oximetry 97 Oxygen Delivery Method Nasal Cannula Oxygen Flow Rate 2 Oxygen Delivery Method Nasal Cannula Oxygen Flow Rate 2 Narrative Exam Narrative: Wounds are clean dry and intact Abdomen is soft, obese Objective Labs 06/01/24 06:10 06/01/24 06:10 [facility] Medical History (Updated 05/23/24 @ 14:57 by Carly Mackey RN) HLD (hyperlipidemia) Hypertension STEFFEN (obstructive sleep apnea) (~2013) COPD (chronic obstructive pulmonary disease) Surgical History (Updated 05/23/24 @ 13:57 by Carly Mackey RN) Hx of colonoscopy (05/12/24) Hx of hemorrhoidectomy Hx of hernia repair Family History Unknown Diabetes mellitus Hypertension Sister No problems noted. Social History marital status: unknown household members: none Smoking Status: Former smoker alcohol intake: former substance use type: does not use Assessment & Plan Assessment and plan (1) Colonic mass: Status: Acute Plan Advance to regular diet today Expect discharge home Thursday or Thursday if he is feeling stronger. He lives alone. Time-Based Coding :: [TOTAL MINUTES] spent with patient and on the chart (including review of chart, obtaining history, exam, reviewing outside data, placing orders, documenting exam and treatment plan, and counseling patient) on [DATE]. PROFEE Second Rigger Document charge(s): No
[2024-06-02] MEDS: ATORVASTATIN 20 MG TABLET 10 MG PO (20:27)
[2024-06-03] VITALS (7 sets, daily range): BP systolic 134–145; BP diastolic 54–59; PULSE 68–76; RESP 20–24; TEMP 36.3–36.5; O2SAT 91–95
[2024-06-03] MEDS: ALBUTEROL/IPRATROPIUM 3 ML AMPUL INH ×2 (07:43→11:45)
[2024-06-03] MEDS: BUDESONIDE 0.5 MG/2 ML NEB INH (07:43)
[2024-06-03] MEDS: ENOXAPARIN 40 MG/0.4 ML SYRINGE SUBCUT ×2 (08:48→20:41)
[2024-06-03] MEDS: carvediloL 3.125 MG TABLET 6.25 MG PO (08:48)
[2024-06-03] MEDS: HYDROCODONE/ACET 5/325 TABLET 2 TAB PO ×2 (08:49→14:57)
[2024-06-03] MEDS: SODIUM CHLORIDE 0.9% FLUSH 10 ML IV ×2 (09:00→21:47)
--- NOTE | 2024-06-03 12:45 | P.PN_ITS ---
Subjective Subjective Date Patient Seen: 06/03/24 Time Patient Seen: 12:45 Interval history: Patient is still on supplemental oxygen, but eating a regular lunch without nausea or vomiting. Does not feel ready to go home today, but thinks he might be doing better tomorrow. States he has been working with his incentive spirometer as he knows he has COPD. Exam Vital Signs (past 8 hours): - 06/03/24 07:43 06/03/24 07:52 06/03/24 08:00 Temperature 97.4 F L Pulse Rate 76 72 76 Respiratory Rate 20 22 20 Blood Pressure 145/59 H Pulse Oximetry 95 95 91 Oxygen Delivery Method Nasal Cannula Nasal Cannula Oxygen Flow Rate 2 2 2 06/03/24 08:48 06/03/24 11:46 Temperature Pulse Rate 68 Respiratory Rate 20 Blood Pressure 145/59 H Pulse Oximetry 95 Oxygen Delivery Method Nasal Cannula Oxygen Flow Rate 2 Oxygen Delivery Method Nasal Cannula Oxygen Flow Rate 2 Narrative Exam Narrative: Patient was sitting up in a chair, comfortable. No drainage from the incisions. Objective Labs 06/01/24 06:10 06/01/24 06:10 [facility] Medical History (Updated 05/23/24 @ 14:57 by Carly Mackey RN) HLD (hyperlipidemia) Hypertension STEFFEN (obstructive sleep apnea) (~2013) COPD (chronic obstructive pulmonary disease) Surgical History (Updated 05/23/24 @ 13:57 by Carly Mackey RN) Hx of colonoscopy (05/12/24) Hx of hemorrhoidectomy Hx of hernia repair Family History Unknown Diabetes mellitus Hypertension Sister No problems noted. Social History marital status: unknown household members: none Smoking Status: Former smoker alcohol intake: former substance use type: does not use Assessment & Plan Post-op Postoperative Procedures: Procedures Operation Date: 05/31/24 10:45 Actual Procedure Side Surgeon p Laparoscopic converted to open Hemicolectomy Right Dylan Negro MD Postoperative day: 3 Postoperative status: doing well Postoperative status narrative: Continue to wean O2 Postoperative plan: routine post-op care Time Spent With Patient Time with patient: less than 15 minutes
--- NOTE | 2024-06-03 14:13 | CM.DPNOTE ---
MARGARETP Cont Reviewed chart. Patient discussed in multidisciplinary rounds. Patient remains on supplemental oxygen but eating regular diet. PT ordered and pending. Patient lives alone, plans to return home but hopeful he will be asmitted another 24-48 hrs for continued recovery. Plan remains discharge home. R/o need for HH closer to DC. CM team following clinical course closely. DENZEL
--- NOTE | 2024-06-03 15:46 | PT-IP ANOTE ---
PT eval order received. EMR reviewed. checked on pt and pt refused PT. stated that he does not think he is ready to go home tomorrow. pt stated that it is only now that he is getting comfortable. educated pt on importance of mobility and PT. pt stated that he has been walking around in room previously but does not want to do PT. informed pt that PT want to assess mobility and does not need to do a whole lot if he cannot. pt stated that he does not want to move at all. pt agreed to do PT tomorrow. nurse informed.
[2024-06-03] MEDS: ATORVASTATIN 20 MG TABLET 10 MG PO (20:41)
[2024-06-03] MEDS: HYDROCODONE/ACET 5/325 TABLET 1 TAB PO (20:42)
[2024-06-04] MEDS: HYDROCODONE/ACET 5/325 TABLET 1 TAB PO (04:51)
--- NOTE | 2024-06-04 07:55 | CM.DPNOTE ---
DCP Note LITIGATION SECRETARY reviewed EMR per chart review, pt refused therapy yesterday. Per chart, pt remains on oxygen 2ltrs. plan remains to continue to wean today.. Per RN, pt told her that he does not wish to dc home today. plan remains to continue to wean off oxygen. Plan remains discharge home. R/o need for HH closer to DC. CM team following clinical course closely. RUBEN Nuñez
--- NOTE | 2024-06-04 08:36 | PC.NURSE ---
Day shift: at shift change, pt is sitting up in his chair. Denies any pain. Still requiring 2L NC. Pt confirmed he is using his incentive spirometer, and practicing deep breathing.
[2024-06-04 08:39] VITALS: BP 132/45; PULSE 73; RESP 22; TEMP 36.3; O2SAT 93
[2024-06-04] MEDS: BUDESONIDE 0.5 MG/2 ML NEB INH ×3 (08:39→20:28)
[2024-06-04] MEDS: ALBUTEROL/IPRATROPIUM 3 ML AMPUL INH ×2 (08:39→20:23)
[2024-06-04 08:40] VITALS: PULSE 74; RESP 18; O2SAT 93
[2024-06-04 09:20] VITALS: BP 132/45; PULSE 74
[2024-06-04] MEDS: ENOXAPARIN 40 MG/0.4 ML SYRINGE SUBCUT ×2 (09:20→20:48)
[2024-06-04] MEDS: VALSARTAN 80 MG TABLET 160 MG PO (09:20)
[2024-06-04] MEDS: carvediloL 3.125 MG TABLET 6.25 MG PO (09:20)
[2024-06-04] MEDS: SODIUM CHLORIDE 0.9% FLUSH 10 ML IV ×2 (09:22→20:57)
--- NOTE | 2024-06-04 09:41 | P.PN_ITS ---
Subjective Subjective Date Patient Seen: 06/04/24 Time Patient Seen: 09:41 Interval history: Patient is still on 2 L oxygen, states that he has home oxygen. However he does not feel confident in his ability to get around his house yet, which is wheelchair accessible, but he will have better resources tomorrow. Exam Vital Signs (past 8 hours): - 06/04/24 08:39 06/04/24 08:40 06/04/24 09:00 Temperature 97.4 F L Pulse Rate 73 74 Respiratory Rate 22 18 Blood Pressure 132/45 L Pulse Oximetry 93 93 Oxygen Delivery Method Nasal Cannula Nasal Cannula Oxygen Flow Rate 0 2 Fraction of Inspired Oxygen 28 06/04/24 09:20 Temperature Pulse Rate 74 Respiratory Rate Blood Pressure 132/45 L Pulse Oximetry Oxygen Delivery Method Oxygen Flow Rate Fraction of Inspired Oxygen Fraction of Inspired Oxygen 28 SaO2/FiO2 Ratio 332 Oxygen Delivery Method Nasal Cannula Oxygen Flow Rate 2 Narrative Exam Narrative: Gen: NAD, sitting comfortably in bed, appears well HEENT: Sclera are anicteric, head is normocephalic and atraumatic, trachea is midline. CV: RRR, no JVD Resp: clear to auscultation bilaterally, equal chest wall movement bilaterally Abd: soft, nontender, normoactive bowel sounds. Obese. Staple lines intact without cellulitis Ext: no edema, full range of motion Neuro: Cranial nerves II-XII grossly intact, no focal deficits Skin: No erythema or ecchymosis Objective Labs 06/01/24 06:10 06/01/24 06:10 [facility] Medical History (Updated 05/23/24 @ 14:57 by Carly Mackey RN) HLD (hyperlipidemia) Hypertension STEFFEN (obstructive sleep apnea) (~2013) COPD (chronic obstructive pulmonary disease) Surgical History (Updated 05/23/24 @ 13:57 by Carly Mackey RN) Hx of colonoscopy (05/12/24) Hx of hemorrhoidectomy Hx of hernia repair Family History Unknown Diabetes mellitus Hypertension Sister No problems noted. Social History marital status: unknown household members: none Smoking Status: Former smoker alcohol intake: former substance use type: does not use Assessment & Plan Post-op Postoperative Procedures: Procedures Operation Date: 05/31/24 10:45 Actual Procedure Side Surgeon p Laparoscopic converted to open Hemicolectomy Right Dylan Negro MD Postoperative day: 4 Postoperative status: doing well Postoperative plan: ambulate Postoperative plan narrative: Plan for discharge tomorrow Time Spent With Patient Time with patient: less than 15 minutes
--- NOTE | 2024-06-04 12:37 | PT.IIE ---
Current Diagnoses Other specified diseases of intestine (05/31/24) Surgery Performed Operation Date: 05/31/24 10:45 Actual Procedures p Laparoscopic converted to open Hemicolectomy(Right) - Dylan Negro MD Surgical History (Last Updated 05/23/24 @ 13:57 by Carly Mackey, RN) Hx of colonoscopy (05/12/24) Hx of hemorrhoidectomy Hx of hernia repair Medical History (Last Updated 05/23/24 @ 14:57 by Carly Mackey RN) COPD (chronic obstructive pulmonary disease) HLD (hyperlipidemia) Hypertension STEFFEN (obstructive sleep apnea) (~2013) Physical Therapy Inpatient Evaluation/Re-Eval M1 PT/OT-IP Prior Functional Status Start: 06/04/24 11:56 Freq: NEEDED Status: Active Protocol: Document 06/04/24 12:21 AMB (Rec: 06/04/24 12:37 AMB [id number]) Medical Review Prior Functional Status Medical History Reviewed Yes Communication WFL Mobility and Gait Lives in a home that he reports is wheelchair accessible Activities of Daily Living and IADL's on O2 at baseline, drives independently but chronic COPD limits mobility Social History Household Members none Living Arrangements House Number of Floors (Floors) One Floor Number of Stairs To Enter/Railing? 0 Home Equipment Front Wheel Walker,Manual Wheelchair Employment Status Self-Employed M2 PT-IP Current Condition Start: 06/04/24 11:56 Freq: NEEDED Status: Active Protocol: Document 06/04/24 12:21 AMB (Rec: 06/04/24 12:37 AMB [id number]) Physical Therapy Current Condition Current Condition Evaluation Date 06/04/24 Treatment Diagnosis weakness s/p hemicolectomy Onset Date 05/31/24 M3 PT-IP Subjective Start: 06/04/24 11:56 Freq: NEEDED Status: Active Protocol: Document 06/04/24 12:21 AMB (Rec: 06/04/24 12:37 AMB [id number]) Subjective Physical Therapy Visit Type Type Initial Evaluation Visit Start Time 11:55 Visit Stop Time 12:15 Physical Therapy Visit Comments Patient Comments Pt states he is expecting to go home tomorrow, he lives alone, is hoping to have one of his friends pick him up from the hospital at noon. Pt is seated in chair, he states he has been unable to sleep in the hospital bed. M4 PT-IP Mobility and Gait Start: 06/04/24 11:56 Freq: NEEDED Status: Active Protocol: Document 06/04/24 12:21 AMB (Rec: 06/04/24 12:37 AMB [id number]) PT-Transfer Assessment Sit to and From Stand Sit to and from Stand Standby Assistance,Use of Upper Extremities Equipment Transfer Assistive Device Front Wheeled Walker Transfers Transfer Destination Chair Transfer Technique Stand Step Pivot Transfer Ability Level of Assist Standby Assistance Comments Mobility Comments [place] performed a sit to stand with stand by assist with good form. Attempted to check SpO2 while on 2L of O2 but pulse oximeter would not pick him up on his finger. Gait Assessment Gait Gait Assistance Required: Standby Assistance Distance (Feet) 15 Assistive Devices Assistive Device Front Wheeled Walker Comments Gait Comments Patient was able to ambulate throughout room with FWW and SBA, at times picking up FWW off of the floor to manuever around bed and chairs, rather than maneuvering around items but did not have any LOB or difficulty with this. Did not report any SOB. M5 PT-IP Objective Assessments Start: 06/04/24 11:56 Freq: NEEDED Status: Active Protocol: Document 06/04/24 12:21 AMB (Rec: 06/04/24 12:37 AMB [id number]) Orientation Orientation/Cognition Level of Alertness Alert Strength Upper Extremity Strength Assessment Within Functional Limits Lower Extremity Strength Assessment Within Functional Limits M7 PT-IP Assessment and Plan Start: 06/04/24 11:56 Freq: NEEDED Status: Active Protocol: Document 06/04/24 12:21 AMB (Rec: 06/04/24 12:37 AMB [id number]) PT Summary Assessment and Plan Potential Rehabilitation Potential Good Status of Condition at Evaluation Stable Summary Impairments Balance,Gait,Activity Tolerance Assessment Summary [place] appears to be close to his prior baseline. He was on O2 at home before surgery and per his report has a very wheelchair accessible home. He declined having his bed mobility evaluated as the bed here is very uncomfortable for him, but since he was able to mobilize around the room barely using his FWW without any loss of balance or apparent difficulty he does appear to be close to his previous baseline as far as his mobility goes. Discussed if he felt home health would be beneficial and he categorically refused. Goals Bed Mobility Goal Standby Assistance Transfer Goal Standby Assistance Gait Goal Standby Assistance Gait Distance 100 Days to Meet Goals 5 Frequency of Treatment Frequency Of Treatment Once a Day Treatment Plan Physical Therapy Treatment Plan Bed Mobility Training,Transfer Training,Gait Training, Therapeutic Exercise,Balance Retraining Recommendations To Nursing Amount of Assist Needed 1 Person Assist Discharge Recommendations PT Discharge Recommendations Home Transportation Needs at Discharge Private Vehicle - PT assist 1
[2024-06-04] MEDS: HYDROCODONE/ACET 5/325 TABLET 2 TAB PO ×2 (13:03→18:57)
[2024-06-04 20:00] VITALS: BP 138/86; PULSE 86; RESP 19; TEMP 37; O2SAT 96
[2024-06-04 20:25] VITALS: PULSE 78; RESP 20; O2SAT 94
[2024-06-04] MEDS: ATORVASTATIN 20 MG TABLET 10 MG PO (20:47)
--- NOTE | 2024-06-05 00:32 | PC.NURSE ---
Assumed care of patient 06/05/2024 at 0010
[2024-06-05] MEDS: HYDROCODONE/ACET 5/325 TABLET 2 TAB PO (07:42)
--- NOTE | 2024-06-05 07:45 | PM.DS.IH.1 ---
History of Present Illness History of Present Illness Date Patient Seen: 06/05/24 Time Patient Seen: 07:45 Chief complaint: Lap R hemicolectomy Discharge Providers Provider Date of admission: 05/31/24 09:22 Discharge Date: 06/05/24 Primary care physician: Hannah Heard MD Consults: 06/03/24 14:12 Consult to Physical Therapy Evaluate & Treat Comment: Physician Instructions: Evaluate and Treat Discharge provider: Eugene Drummond MD Summary Hospital Course Discharge Diagnosis: Colon neoplasm of undetermined malignant potential, severe obesity with BMI 47, severe COPD requiring oxygen Hospital Course: Patient was admitted for a colon resection. Postoperatively did well requiring additional support from physical therapy due to his severe obesity, an additional support from respiratory therapy due to a COPD. He recovered well without complication Status at Discharge Cognitive/behavioral status at discharge: at baseline, oriented Functional status at discharge: uses cane/walker Overall status at discharge: patient is back to baseline Time Spent with Patient Time spent: Less than 30 minutes Exam Vital Signs (past 8 hours): Fraction of Inspired Oxygen 28 SaO2/FiO2 Ratio 335 Oxygen Delivery Method Nasal Cannula Oxygen Flow Rate 2 Objective Labs 06/01/24 06:10 06/01/24 06:10 [facility] Medical History (Updated 05/23/24 @ 14:57 by Carly Mackey RN) HLD (hyperlipidemia) Hypertension STEFFEN (obstructive sleep apnea) (~2013) COPD (chronic obstructive pulmonary disease) Surgical History (Updated 05/23/24 @ 13:57 by Carly Mackey RN) Hx of colonoscopy (05/12/24) Hx of hemorrhoidectomy Hx of hernia repair Family History Unknown Diabetes mellitus Hypertension Sister No problems noted. Social History marital status: unknown household members: none Smoking Status: Former smoker alcohol intake: former substance use type: does not use Discharge Assessment & Plan Assessment and Plan Assessment: 1. Colon neoplasm of undetermined malignant potential 2. Severe morbid obesity with BMI of 47 3. Severe COPD Discharge Plan Discharge Plan Patient Disposition: Home Discharge orders & Medications Prescriptions: New oxycodone 5 mg tablet 5 mg PO Q8H PRN (Reason: pain, severe) Qty: 7 0RF enoxaparin [Lovenox] 40 mg/0.4 mL Syringe 40 mg SUBCUT BID 28 Days Qty: 22.4 0RF tizanidine 2 mg tablet 2 mg PO Q8H PRN (Reason: muscle spasticity or pain) Qty: 90 0RF Continued albuterol sulfate 2.5 mg/0.5 mL solution for nebulization 5 mg inhalation Q6H PRN (Reason: shortness of breath or wheezing) Qty: 90 12RF multivitamin capsule 1 cap PO DAILY Combivent Respimat 20-100 mcg/actuation mist 1 puff INHALATION QID Patient Comments: inhale 1 puff by mouth and INTO THE LUNGS four times a day naproxen sodium [Aleve] 220 mg Capsule 220 mg PO DAILY PRN (Reason: Pain) aspirin 325 mg Capsule 325 mg PO DAILY PRN (Reason: Pain) valsartan 160 mg tablet 160 mg PO DAILY rosuvastatin 5 mg tablet 5 mg PO DAILY [id number] 160-9-4.8 mcg/actuation HFA aerosol inhaler 2 inh inhalation BID PRN (Reason: Wheezing) albuterol sulfate 90 mcg/actuation HFA aerosol inhaler 2 puff inhalation Q6H PRN (Reason: Shortness Of Breath) carvedilol 3.125 mg tablet 6.25 mg PO QAM Discontinued neomycin 500 mg tablet 1 g PO TID Qty: 6 0RF Rx Instructions: administer at 1 PM, 2 PM, and 10 PM the day prior to surgery metronidazole 500 mg tablet 500 mg PO TID Qty: 3 0RF Rx Instructions: administer at 1 PM, 2 PM, and 10 PM the day prior to surgery Follow up/Referrals: Hannah Heard MD [Primary Care Provider] - Diet/Activity/Treatments Diet: Regular Diet comment: soft, [id number] foods Activity: no lifting over 20 pounds for 6 weeks Cold/Heat Therapy: apply heat or ice to the incisions, 20 minutes on/20 minutes off as needed Other treatments: Take Acetaminophen 500 mg every 4 hours Skin/Wound/Dressing Care Skin care: shower with mild soap (Dove, Neutrogena, etc) daily Report to your healthcare provider any signs of infection, such as:: chills, fever, night sweats, increased pain, unusual drainage and unusual redness Dressing: violeta will be removed in the office. You may cover them with a dressing if they catch on your clothing Visit Report/Discharge Packet Instructions: DI for Colectomy, DI for Prescription Opioid Use Stand Alone Forms: Patient Portal/API, Stroke Signs & Symptoms Discharge Data Primary Care Provider: Hannah Heard Charge Codes Discharge inpatient/observation: [id number] ([id number] post-op)
[2024-06-05 07:59] VITALS: BP 131/47
[2024-06-05 08:00] VITALS: BP 131/47; PULSE 74; RESP 15; TEMP 36.2; O2SAT 93
[2024-06-05] MEDS: BUDESONIDE 0.5 MG/2 ML NEB INH (08:41)
[2024-06-05] MEDS: ALBUTEROL/IPRATROPIUM 3 ML AMPUL INH (08:41)
[2024-06-05 08:44] VITALS: PULSE 76; RESP 18; O2SAT 93
--- NOTE | 2024-06-05 10:34 | CM.DPC ---
DCP Discharge Home Per MD, pt is medically stable to d/c home today with no identified barriers to discharge. Per PT, recommending discharge home with assist and HH but pt declines HH at this time. Pt resides at home alone but house is w/c accessible if needed and typically uses a cane if needed and furniture surfs and drives at baseline with home oxygen normally and friend plans to provide transport home today. No concerns noted. RUBEN Morel
[2024-06-05] MEDS: ENOXAPARIN 40 MG/0.4 ML SYRINGE SUBCUT (11:41)
--- NOTE | 2024-06-05 12:45 | PC.NURSE ---
Patient is A&OX4, VSS, afebrile. He is weaned to RA this a.m. and tolerating well. He is evaluated by MD Drummond at bedside and cleared for discharge home. He verbalizes understanding of medications (demonstrated Lovenox injections), site care, activity limitations and follow up post-op appointment. Incision sites to abdomen c/d/i. He is passing gas and reports pain is well controlled with prn oral pain medication. He tolerates 100% of breakfast well and denies n/v. He calls ex - for ride home from [place]. He is escorted by [employer] via w/ch to private vehicle today at 1215 pm for discharge home.
== END 2024-06-05 12:15 | disposition home or self-care (01) | DRG 330 ==
PROVIDERS: Admitting Provider Surgery; PCP Internal Medicine; Referring Provider Surgery; Visit Provider Surgery
PROC: 0DTE0ZZ Resection of Large Intestine, Open Approach (ICD-10-PCS; principal; 2024-05-31 10:45)
DX: D37.4 Neoplasm of uncertain behavior of colon (principal); Z68.42 Body mass index [BMI] 45.0-49.9, adult; E66.01 Morbid (severe) obesity due to excess calories; J44.9 Chronic obstructive pulmonary disease, unspecified; I10 Essential (primary) hypertension; E78.5 Hyperlipidemia, unspecified; G47.33 Obstructive sleep apnea (adult) (pediatric); Z87.891 Personal history of nicotine dependence
CPT/HCPCS: 36415; 44204; 80048; 85025; 94640; 94762; 97161; J0131; J0295; J0666; J1100; J1171; J1650; J1885; J2405; J2704; J3010; J7613